=== PATIENT | female | born 1975 | race Caucasian/White ===

== ENCOUNTER 2016-08-10 20:18 | Emergency (ER) | payer MEDICAID, OTHER ==
[~2016-08-10] VITALS: Ht 160 cm; Wt 45.5 kg
[2016-08-10 20:25] VITALS: Ht 160 cm; Wt 45.5 kg
[2016-08-10] MEDS ORDERED: SOD CHLORIDE 0.9% 1,000 ML IV STA ×2 (20:39→21:38)
[2016-08-10 21:17] LABS: ADD SCAN DIFF NO
[2016-08-10 21:18] LABS: BASOPHIL # 0.1 10^3/ul (0.0-0.1); BASOPHILS % 0.6 % (0.0-2.0); EOSINOPHILS # 0.1 10^3/ul (0.0-0.5); EOSINOPHILS % 1.3 % (0.0-7.0); HEMATOCRIT 34.3 % (37.0-47.0); HEMOGLOBIN 10.6 g/dl (12.0-16.0); LYMPHOCYTES # 2.2 10^3/ul (0.8-2.9); LYMPHOCYTES % 26.2 % (15.0-51.0); MEAN CORPUSCULAR HEMOGLOBIN 23.7 pg (29.0-33.0); MEAN CORPUSCULAR HGB CONC 30.9 g/dl (32.0-37.0); MEAN CORPUSCULAR VOLUME 76.6 fl (82.0-101.0); MEAN PLATELET VOLUME 11.9 fl (7.4-10.4); MONOCYTE # 0.5 10^3/ul (0.3-0.9); NEUTROPHIL # 5.4 10^3/ul (1.6-7.5); NEUTROPHILS % 65.5 % (39.0-77.0); PLATELET COUNT 273 10^3/UL (140-415); RED BLOOD COUNT 4.48 10^6/ul (4.20-5.40); RED CELL DISTRIBUTION WIDTH 14.6 % (11.5-14.5); WHITE BLOOD COUNT 8.3 10^3/ul (4.8-10.8)
[2016-08-10 21:20] LABS: ADD UMIC YES; UR ASCORBIC ACID NEGATIVE (NEGATIVE); UR BILIRUBIN (Dip) NEGATIVE (NEGATIVE); UR BLOOD (Dip) 3+ mg/dL (NEGATIVE); UR CLARITY SLIGHTLY CLOUDY (CLEAR); UR COLOR YELLOW (YELLOW); UR GLUCOSE (Dip) 3+ mg/dL (NEGATIVE); UR KETONES (Dip) NEGATIVE (NEGATIVE); UR LEUKOCYTE ESTERASE (Dip) TRACE Leu/ul (NEGATIVE); UR NITRITE (Dip) NEGATIVE (NEGATIVE); UR RBC 1 /HPF (0-5); UR SPECIFIC GRAVITY (Dip) 1.023 (1.003-1.030); UR TOTAL PROTEIN (Dip) NEGATIVE (NEGATIVE); UR UROBILINOGEN (Dip) NEGATIVE (NEGATIVE)
[2016-08-10 21:21] LABS: UR BACTERIA MODERATE /HPF (NONE SEEN); UR SQUAMOUS EPITHELIAL CELL FEW /HPF (FEW)
[2016-08-10] MEDS ORDERED: HUM100IN4 SQ (21:31)
[2016-08-10 21:36] LABS: ALBUMIN 4.7 g/dl (3.3-4.9); ALBUMIN/GLOBULIN RATIO 1.46; BILIRUBIN,INDIRECT 0.3 mg/dl (0-1.1); BILIRUBIN,TOTAL 0.3 mg/dl (0.2-1.3); CALCIUM 9.6 mg/dl (8.4-10.2); CREATININE 0.77 mg/dl (0.44-1.00); POTASSIUM 3.9 mmol/L (3.5-5.1); TOTAL PROTEIN 7.9 g/dl (6.1-8.1)
[2016-08-10] MEDS ORDERED: morphine 4 MG/ML VIAL IV STA (21:38)
--- NOTE | 2016-08-10 21:38 | ERD ---
ER Documentation Chief Complaint Date/Time DATE: 08/10/16 TIME: 21:36 Chief Complaint hyperglycemia, [id number] [id number], blurry vision, did not take insulin shots HPI This is a 41-year-old female who presents to the emergency room for evaluation of elevated blood sugar. The patient does say she is a type I diabetic and states that she has not had her insulin shots in over 3 weeks. She states that she normally takes Novolin units in the morning and 15 units at night. The patient was brought in for further evaluation and denies any other symptoms except for mild abdominal cramping with no nausea or vomiting at this time. ROS All systems reviewed and are negative except as per history of present illness. Medications Home Meds Reported Medications Hum Insulin NPH/Reg Insulin Hm (Humulin 70/30 Kwikpen) 100 Unit/1 Ml Insuln.pen , 15 UNIT SQ BID 08/10/16 Allergies Allergies: Coded Allergies: No Known Allergy (Unverified , 08/10/16) PMhx/Soc History of Surgery: Yes (APPENDECTOMY) Anesthesia Reaction: No Hx Neurological Disorder: No Hx Respiratory Disorders: No Hx Cardiac Disorders: No Hx Psychiatric Problems: No Hx Miscellaneous Medical Probl: Yes (DM) Hx Alcohol Use: No Hx Substance Use: No Hx Tobacco Use: No Smoking Status: Never smoker Physical Exam Vitals Vital Signs Date Time Temp Pulse Resp B/P Pulse Ox O2 Delivery O2 Flow Rate FiO2 08/10/16 20:25 98.2 98 20 125/85 98 Physical Exam Const: No acute distress Head: Atraumatic Eyes: Normal Conjunctiva ENT: Normal External Ears, Nose and Mouth. Neck: Full range of motion..~ No meningismus. Resp: Clear to auscultation bilaterally Cardio: Regular rate and rhythm, no murmurs Abd: Soft, non tender, non distended. Normal bowel sounds Skin: No petechiae or rashes Back: No midline or flank tenderness Ext: No cyanosis, or edema Neur: Awake and alert Psych: Normal Mood and Affect Result Diagram: 08/10/162049 Results 24 hrs Laboratory Tests Test 08/10/16 20:24 08/10/16 20:50 Bedside Glucose 541mg/dL White Blood Count 8.310^3/ul Red Blood Count 4.4810^6/ul Hemoglobin 10.6g/dl Hematocrit 34.3% Mean Corpuscular Volume 76.6fl Mean Corpuscular Hemoglobin 23.7pg Mean Corpuscular Hemoglobin Concent 30.9g/dl Red Cell Distribution Width 14.6% Platelet Count 19338^3/UL Mean Platelet Volume 11.9fl Neutrophils % 65.5% Lymphocytes % 26.2% Monocytes % 6.0% Eosinophils % 1.3% Basophils % 0.6% Nucleated Red Blood Cells % 0.0/100WBC Neutrophils # 5.410^3/ul Lymphocytes # 2.210^3/ul Monocytes # 0.510^3/ul Eosinophils # 0.110^3/ul Basophils # 0.110^3/ul Nucleated Red Blood Cells # 0.010^3/ul Urine Color YELLOW Urine Clarity SLIGHTLY CLOUDY Urine pH 6.0 Urine Specific [place] 1.023 Urine Ketones NEGATIVEmg/dL Urine Nitrite NEGATIVEmg/dL Urine Bilirubin NEGATIVEmg/dL Urine Urobilinogen NEGATIVEmg/dL Urine Leukocyte Esterase TRACELeu/ul Urine Microscopic RBC 1/HPF Urine Microscopic WBC 8/HPF Urine Squamous Epithelial Cells FEW/HPF Urine Bacteria MODERATE/HPF Urine Hemoglobin 3+mg/dL Urine Glucose 3+mg/dL Urine Total Protein NEGATIVEmg/dl Current Medications Medications (Trade) Dose Ordered Sig/Nathan Route PRN Reason Start Time Stop Time Status Last Admin Dose Admin Sodium Chloride (NS) 1,000 ml @ 1,000 mls/hr Q1H STAT IV 08/10/16 20:39 08/10/16 21:38 08/10/16 21:02 Procedures/MDM This 41-year-old female presents to the ER for evaluation of hyperglycemia. This patient did have an elevated blood sugar on her CMP. No signs of DKA at this time. The patient was given 1 L fluids, was given 15 units of subcutaneous insulin. This patient will be discharged when her blood sugar is less than 400. She will be discharged home with a prescription for Novolin 70/ 30 Departure Diagnosis: Primary Impression: Hyperglycemia Condition: Stable MARKIE REZA DO Aug 10, 2016 21:38
[2016-08-10] MEDS ORDERED: NOVMIX SC (21:41)
[2016-08-10] MEDS ORDERED: INSULIN REGULAR 10 ML INJ SC ONE (22:00)
[2016-08-10] MEDS ORDERED: INSULIN REGULAR, HUMAN 100 UNIT/1 ML 3ML VIAL SC ONE (22:30)
[2016-08-10 23:39] VITALS: BP 102/79; PULSE 88; RESP 20; TEMP 98.2
== END 2016-08-10 23:53 | disposition home or self-care (01) ==
LOC: E/R 20:18
DX: E11.65 Type 2 diabetes mellitus with hyperglycemia (principal); Z79.4 Long term (current) use of insulin
CPT/HCPCS: 36415; 80053; 81001; 82962; 83690; 85025; 96372; 96374; J1815; J2270; J7030; Z7502

== ENCOUNTER 2016-09-23 19:36 | Emergency (ER) | END 2016-09-24 02:40 | disposition home or self-care (01) | DX: E11.65 Type 2 diabetes mellitus with hyperglycemia (principal); E86.0 Dehydration; E83.42 Hypomagnesemia; D64.9 Anemia, unspecified; R07.9 Chest pain, unspecified; Z79.4 Long term (current) use of insulin | CPT/HCPCS: 36415; 36600; 71010; 80053; 80306; 80307; 81001; 82803; 82962; 83605; 83690; 83735; 84100; 85025; 85610; 85730; 87040; 87086; 96372; 96374; 96375; J1815; J2405; J3475; J7030; Z7502 ==

== ENCOUNTER 2016-10-21 10:51 | Emergency (ER) | payer MEDICAID ==
[~2016-10-21] VITALS: Wt 43.0 kg
[~2016-10-21 10:51] MED LIST: ACET-141 PO; HUM100IN4 SQ; IBUP200C11 PO; NOVO7030 SC
[2016-10-21] MEDS ORDERED: SOD CHLORIDE 0.9% 1,000 ML IV STA (12:46)
[2016-10-21] MEDS ORDERED: ONDANSETRON 4 MG INJ IV STA (12:46)
[2016-10-21] MEDS ORDERED: KETOROLAC 30 MG INJ IV STA (12:46)
[2016-10-21 13:08] LABS: BASOPHILS % 0.4 % (0.0-2.0); EOSINOPHILS % 0.3 % (0.0-7.0); HEMOGLOBIN 11.7 g/dl (12.0-16.0); LYMPHOCYTES # 1.6 10^3/ul (0.8-2.9); LYMPHOCYTES % 17.4 % (15.0-51.0); MEAN CORPUSCULAR HEMOGLOBIN 23.6 pg (29.0-33.0); MEAN CORPUSCULAR HGB CONC 30.8 g/dl (32.0-37.0); MEAN CORPUSCULAR VOLUME 76.6 fl (82.0-101.0); MEAN PLATELET VOLUME 10.9 fl (7.4-10.4); MONOCYTE # 0.5 10^3/ul (0.3-0.9); MONOCYTES % 5.3 % (0.0-11.0); NEUTROPHIL # 6.8 10^3/ul (1.6-7.5); NEUTROPHILS % 76.3 % (39.0-77.0); PLATELET COUNT 288 10^3/UL (140-415); RED BLOOD COUNT 4.96 10^6/ul (4.20-5.40); RED CELL DISTRIBUTION WIDTH 15.5 % (11.5-14.5); WHITE BLOOD COUNT 8.9 10^3/ul (4.8-10.8)
[2016-10-21 13:40] LABS: ALANINE AMINOTRANSFERASE 24 IU/L (13-69); ALBUMIN 4.6 g/dl (3.3-4.9); ALBUMIN/GLOBULIN RATIO 1.09; ALKALINE PHOSPHATASE 65 IU/L (42-121); ANION GAP 21 (8-16); ASPARTATE AMINO TRANSFERASE 19 IU/L (15-46); BILIRUBIN,INDIRECT 0.9 mg/dl (0-1.1); BILIRUBIN,TOTAL 0.9 mg/dl (0.2-1.3); BLOOD UREA NITROGEN 14 mg/dl (7-20); CALCIUM 9.6 mg/dl (8.4-10.2); CARBON DIOXIDE 25 mmol/L (21-31); CHLORIDE 91 mmol/L (97-110); CREATININE 0.69 mg/dl (0.44-1.00); GLUCOSE 351 mg/dl (70-220); POTASSIUM 3.4 mmol/L (3.5-5.1); SODIUM 134 mmol/L (135-144); TOTAL PROTEIN 8.8 g/dl (6.1-8.1)
[2016-10-21] MEDS ORDERED: POTASSIUM CHLORIDE (SR) 20 MEQ TAB PO STA (13:52)
[2016-10-21 13:54] LABS: TROPONIN-I < 0.012 ng/ml (0.00-0.12)
[2016-10-21] MEDS ORDERED: POTASSIUM CHLORIDE (SR) 20 MEQ TAB PO ONE (13:55)
[2016-10-21 14:05] LABS: ADD UMIC YES; UR ASCORBIC ACID NEGATIVE (NEGATIVE); UR BACTERIA FEW /HPF (NONE SEEN); UR BILIRUBIN (Dip) NEGATIVE (NEGATIVE); UR BLOOD (Dip) NEGATIVE (NEGATIVE); UR CLARITY CLEAR (CLEAR); UR COLOR STRAW (YELLOW); UR GLUCOSE (Dip) 3+ mg/dL (NEGATIVE); UR KETONES (Dip) 2+ mg/dL (NEGATIVE); UR LEUKOCYTE ESTERASE (Dip) TRACE Leu/ul (NEGATIVE); UR NITRITE (Dip) NEGATIVE (NEGATIVE); UR RBC 1 /HPF (0-5); UR SPECIFIC GRAVITY (Dip) 1.017 (1.003-1.030); UR TOTAL PROTEIN (Dip) NEGATIVE (NEGATIVE); UR UROBILINOGEN (Dip) NEGATIVE (NEGATIVE)
[2016-10-21] MEDS ORDERED: IBUP-1542 PO (14:09)
--- NOTE | 2016-10-21 14:12 | ERD ---
ER Documentation Chief Complaint Date/Time DATE: 10/21/16 TIME: 14:12 Chief Complaint BODYACHES, NAUSEA, ONSET 4 DAYS HPI Patient is a 41-year-old female with diabetes who presents with body pain. She said that she has whole body pain and nausea as well as vomiting. She feels lightheaded. She said the symptoms started on Wednesday. She has subjective fever but has not taken her temperature. She tried Tylenol for the pain. Upon review of old medical records this is the patient's third visit to the ER since August 2016. She goes to a local clinic for her care. ROS All systems reviewed and are negative except as per history of present illness. Medications Home Meds Active Scripts Ondansetron (Ondansetron Odt) 4 Mg Tab.rapdis, 4 MG PO Q6H Y for NAUSEA AND/OR VOMITING, #10 TAB Prov:CRIS BLAKE MD 10/21/16 Ibuprofen* (Motrin*) 600 Mg Tab, 600 MG PO Q6H Y for PAIN AND OR ELEVATED TEMP, #30 TAB Prov:CRIS BLAKE MD 10/21/16 Insulin Isophan/Regular (Humulin 70/30) 100 Units/Ml Susp, 15 UNIT SC AC BREAKFAST DINNER for 10 Days, EA Prov:CHLOE QUINONEZ MD 09/24/16 Reported Medications Acetaminophen* (Acetaminophen*) 500 MG Extra Strength Tablet, 500 MG PO Q4H Y for PAIN AND OR ELEVATED TEMP, TAB 09/24/16 Ibuprofen* (Advil*) 200 Mg Capsule, 200 MG PO Q6H Y for PAIN, CAP 09/24/16 Hum Insulin NPH/Reg Insulin Hm (Humulin 70/30 Kwikpen) 100 Unit/1 Ml Insuln.pen , 15 UNIT SQ BID 08/10/16 Allergies Allergies: Coded Allergies: No Known Allergy (Unverified , 10/21/16) PMhx/Soc History of Surgery: Yes (APPENDECTOMY) Anesthesia Reaction: No Hx Neurological Disorder: No Hx Respiratory Disorders: No Hx Cardiac Disorders: No Hx Psychiatric Problems: No Hx Miscellaneous Medical Probl: Yes (DM) Hx Alcohol Use: No Hx Substance Use: No Hx Tobacco Use: No Smoking Status: Never smoker FmHx Family History: diabetes Physical Exam Vitals Vital Signs Date Time Temp Pulse Resp B/P Pulse Ox O2 Delivery O2 Flow Rate FiO2 10/21/16 10:54 97.6 121 17 148/90 97 Physical Exam Const: Moderate distress secondary to pain Head: Atraumatic Eyes: Normal Conjunctiva ENT: Normal External Ears, Nose and Mouth. Neck: Full range of motion..~ No meningismus. Resp: Clear to auscultation bilaterally Cardio: Tachycardic rate without murmur Abd: Soft, non tender, non distended. Normal bowel sounds Skin: No petechiae or rashes Back: No midline or flank tenderness Ext: No cyanosis, or edema Neur: Awake and alert Psych: Normal Mood and Affect Result Diagram: 10/21/16 1250 10/21/16 1250 Results 24 hrs Laboratory Tests Test 10/21/16 10:58 10/21/16 12:50 10/21/16 13:48 Bedside Glucose 243mg/dL White Blood Count 8.910^3/ul Red Blood Count 4.9610^6/ul Hemoglobin 11.7g/dl Hematocrit 38.0% Mean Corpuscular Volume 76.6fl Mean Corpuscular Hemoglobin 23.6pg Mean Corpuscular Hemoglobin Concent 30.8g/dl Red Cell Distribution Width 15.5% Platelet Count 62458^3/UL Mean Platelet Volume 10.9fl Neutrophils % 76.3% Lymphocytes % 17.4% Monocytes % 5.3% Eosinophils % 0.3% Basophils % 0.4% Nucleated Red Blood Cells % 0.0/100WBC Neutrophils # 6.810^3/ul Lymphocytes # 1.610^3/ul Monocytes # 0.510^3/ul Eosinophils # 0.010^3/ul Basophils # 0.010^3/ul Nucleated Red Blood Cells # 0.010^3/ul Sodium Level 134mmol/L Potassium Level 3.4mmol/L Chloride Level 91mmol/L Carbon Dioxide Level 25mmol/L Anion Gap 21 Blood Urea Nitrogen 14mg/dl Creatinine 0.69mg/dl Glucose Level 351mg/dl Calcium Level 9.6mg/dl Total Bilirubin 0.9mg/dl Direct Bilirubin 0.00mg/dl Indirect Bilirubin 0.9mg/dl Aspartate Amino Transf (AST/SGOT) 19IU/L Alanine Aminotransferase (ALT/SGPT) 24IU/L Alkaline Phosphatase 65IU/L Troponin I < 0.012ng/ml Total Protein 8.8g/dl Albumin 4.6g/dl Globulin 4.20g/dl Albumin/Globulin Ratio 1.09 Lipase 133U/L Urine Color STRAW Urine Clarity CLEAR Urine pH 6.0 Urine Specific [place] 1.017 Urine Ketones 2+mg/dL Urine Nitrite NEGATIVEmg/dL Urine Bilirubin NEGATIVEmg/dL Urine Urobilinogen NEGATIVEmg/dL Urine Leukocyte Esterase TRACELeu/ul Urine Microscopic RBC 1/HPF Urine Microscopic WBC 10/HPF Urine Bacteria FEW/HPF Urine Hemoglobin NEGATIVEmg/dL Urine Glucose 3+mg/dL Urine Total Protein NEGATIVEmg/dl Current Medications Medications (Trade) Dose Ordered Sig/Nathan Route PRN Reason Start Time Stop Time Status Last Admin Dose Admin Sodium Chloride (NS) 1,000 ml @ 1,000 mls/hr Q1H STAT IV 10/21/16 12:46 10/21/16 13:45 DC 10/21/16 12:57 Ondansetron HCl (Zofran Inj) 4 mg ONCE STAT IV 10/21/16 12:46 10/21/16 12:47 DC 10/21/16 12:57 Ketorolac Tromethamine (Toradol) 30 mg ONCE STAT IV 10/21/16 12:46 10/21/16 12:47 DC 10/21/16 13:55 Potassium Chloride (Klor-Con 20) 40 meq ONCE STAT PO 10/21/16 13:52 10/21/16 13:54 DC 10/21/16 13:56 Potassium Chloride (Klor-Con 20) 20 meq STK-MED ONCE PO 10/21/16 13:55 10/21/16 13:56 DC Procedures/MDM EKG read by me: Rate/Rhythm: Regular rate and rhythm at a rate of 93 Intervals: Normal Impression: No evidence of ischemia or arrhythmia Patient is a 41-year-old female with diabetes who presents with body pain and dehydration. She was given fluids as well as Toradol and Zofran. She feels better. Her heart rate has normalized. Her laboratory studies show hyperglycemia but no signs of diabetic ketoacidosis. She has a mild hypokalemia and was given potassium by mouth for repletion. The fluids will help with hyperglycemia. I do not believe she requires admission to the hospital at this time and I believe outpatient management is appropriate. I doubt or ectopic . She can follow-up with her primary doctor within 24-48 hours. Departure Diagnosis: Primary Impression: Hypokalemia Additional Impressions: Pain Hyperglycemia Dehydration Condition: Fair Patient Instructions: Back Pain (Acute Or Chronic) Referrals: [facility] YOU HAVE RECEIVED A MEDICAL SCREENING EXAM AND THE RESULTS INDICATE THAT YOU DO NOT HAVE A CONDITION THAT REQUIRES URGENT TREATMENT IN THE EMERGENCY DEPARTMENT. FURTHER EVALUATION AND TREATMENT OF YOUR CONDITION CAN WAIT UNTIL YOU ARE SEEN IN YOUR DOCTORS OFFICE WITHIN THE NEXT 1-2 DAYS. IT IS YOUR RESPONSIBILITY TO MAKE AN APPOINTMENT FOR FOLOW-UP CARE. IF YOU HAVE A PRIMARY DOCTOR --you should call your primary doctor and schedule an appointment IF YOU DO NOT HAVE A PRIMARY DOCTOR YOU CAN CALL OUR PHYSICIAN REFERRAL HOTLINE AT IF YOU CAN NOT AFFORD TO SEE A PHYSICIAN YOU CAN CHOSE FROM THE FOLLOWING [facility] [address] [facility]. [facility] [address] [facility] [address] [facility] [address] [facility] [address] [facility]. [facility] [address] Additional Instructions: Call your primary care doctor TOMORROW for an appointment during the next 1-2 days.See the doctor sooner or return here if your condition worsens before your appointment time. CRIS BLAKE MD Oct 21, 2016 14:12
[2016-10-21] MEDS ORDERED: ONDA4TAB14 PO (14:22)
[2016-10-21 14:37] VITALS: BP 138/81; PULSE 97; RESP 20
== END 2016-10-21 14:38 | disposition home or self-care (01) ==
LOC: FTE 10:51
DX: E87.6 Hypokalemia (principal); E11.65 Type 2 diabetes mellitus with hyperglycemia; E86.0 Dehydration; Z79.4 Long term (current) use of insulin
CPT/HCPCS: 36415; 80053; 81001; 82962; 83690; 84484; 85025; 93005; 96374; 96375; J1885; J2405; J7030; Z7502; Z7610

== ENCOUNTER 2016-10-29 20:06 | Emergency (ER) | payer MEDICAID ==
[~2016-10-29] VITALS: Ht 149.9 cm; Wt 45.0 kg
[~2016-10-29 20:06] MED LIST changes: +IBUP-1542 PO; +ONDA4TAB14 PO
[2016-10-29 20:07] VITALS: Ht 149.9 cm; Wt 45.0 kg
[2016-10-29] MEDS ORDERED: SOD CHLORIDE 0.9% 1,000 ML IV STA (21:28)
[2016-10-29] MEDS ORDERED: KETOROLAC 30 MG INJ IV STA (21:28)
[2016-10-29] MEDS ORDERED: ONDANSETRON 4 MG INJ IV STA (21:28)
[2016-10-29 22:03] LABS: BASOPHILS % 0.5 % (0.0-2.0); EOSINOPHILS # 0.1 10^3/ul (0.0-0.5); EOSINOPHILS % 1.1 % (0.0-7.0); HEMATOCRIT 37.2 % (37.0-47.0); HEMOGLOBIN 11.4 g/dl (12.0-16.0); LYMPHOCYTES # 2.2 10^3/ul (0.8-2.9); MEAN CORPUSCULAR HEMOGLOBIN 23.8 pg (29.0-33.0); MEAN CORPUSCULAR HGB CONC 30.6 g/dl (32.0-37.0); MEAN CORPUSCULAR VOLUME 77.5 fl (82.0-101.0); MEAN PLATELET VOLUME 10.6 fl (7.4-10.4); MONOCYTE # 0.5 10^3/ul (0.3-0.9); MONOCYTES % 5.3 % (0.0-11.0); NEUTROPHILS % 67.9 % (39.0-77.0); PLATELET COUNT 312 10^3/UL (140-415); RED CELL DISTRIBUTION WIDTH 15.8 % (11.5-14.5); WHITE BLOOD COUNT 8.9 10^3/ul (4.8-10.8)
[2016-10-29 22:24] LABS: ALBUMIN 4.2 g/dl (3.3-4.9); ALBUMIN/GLOBULIN RATIO 1.13; BILIRUBIN,INDIRECT 0.6 mg/dl (0-1.1); BILIRUBIN,TOTAL 0.6 mg/dl (0.2-1.3); CALCIUM 9.1 mg/dl (8.4-10.2); CREATININE 0.7 mg/dl (0.44-1.00); POTASSIUM 3.5 mmol/L (3.5-5.1); TOTAL PROTEIN 7.9 g/dl (6.1-8.1)
[2016-10-29 22:59] LABS: ADD UMIC NO; UR ASCORBIC ACID NEGATIVE (NEGATIVE); UR BACTERIA FEW /HPF (NONE SEEN); UR BILIRUBIN (Dip) NEGATIVE (NEGATIVE); UR BLOOD (Dip) NEGATIVE (NEGATIVE); UR CLARITY SLIGHTLY CLOUDY (CLEAR); UR COLOR YELLOW (YELLOW); UR GLUCOSE (Dip) 3+ mg/dL (NEGATIVE); UR KETONES (Dip) TRACE mg/dL (NEGATIVE); UR LEUKOCYTE ESTERASE (Dip) NEGATIVE Leu/ul (NEGATIVE); UR NITRITE (Dip) NEGATIVE (NEGATIVE); UR RBC 2 /HPF (0-5); UR SPECIFIC GRAVITY (Dip) 1.018 (1.003-1.030); UR SQUAMOUS EPITHELIAL CELL FEW /HPF (FEW); UR TOTAL PROTEIN (Dip) NEGATIVE (NEGATIVE); UR UROBILINOGEN (Dip) NEGATIVE (NEGATIVE)
[2016-10-29] MEDS ORDERED: IBUP-1542 PO (23:13)
[2016-10-29] MEDS ORDERED: TRAM50TA2 PO (23:13)
--- NOTE | 2016-10-29 23:16 | ERD ---
ER Documentation Chief Complaint Date/Time DATE: 10/29/16 TIME: 23:14 Chief Complaint c/o "severe body pain." N/V. HPI This 5-year-old female presents with planes of body pain. She describes as being from her waist up to her chest to her arms and neck. She was seen here approximately a week ago for similar complaints. She has a history of diabetes. She had mild hypokalemia at that time. She has nausea due to pain. She denies any fevers, cough, shortness of breath, retrosternal chest pain, abdominal pain. She denies urinary complaints. ROS All systems reviewed and are negative except as per history of present illness. Medications Home Meds Active Scripts Ibuprofen* (Motrin*) 600 Mg Tab, 600 MG PO Q6, #20 TAB Prov:EZEQUIEL ADAMS MD 10/29/16 Tramadol HCl (Tramadol HCl) 50 Mg Tablet, 50 MG PO Q4 Y for PAIN, #20 TAB Prov:EZEQUIEL ADAMS MD 10/29/16 Ondansetron (Ondansetron Odt) 4 Mg Tab.rapdis, 4 MG PO Q6H Y for NAUSEA AND/OR VOMITING, #10 TAB Prov:CRIS BLAKE MD 10/21/16 Ibuprofen* (Motrin*) 600 Mg Tab, 600 MG PO Q6H Y for PAIN AND OR ELEVATED TEMP, #30 TAB Prov:CRIS BLAKE MD 10/21/16 Insulin Isophan/Regular (Humulin 70/30) 100 Units/Ml Susp, 15 UNIT SC AC BREAKFAST DINNER for 10 Days, EA Prov:CHLOE QUINONEZ MD 09/24/16 Reported Medications Acetaminophen* (Acetaminophen*) 500 MG Extra Strength Tablet, 500 MG PO Q4H Y for PAIN AND OR ELEVATED TEMP, TAB 09/24/16 Ibuprofen* (Advil*) 200 Mg Capsule, 200 MG PO Q6H Y for PAIN, CAP 09/24/16 Hum Insulin NPH/Reg Insulin Hm (Humulin 70/30 Kwikpen) 100 Unit/1 Ml Insuln.pen , 15 UNIT SQ BID 08/10/16 Allergies Allergies: Coded Allergies: No Known Allergy (Unverified , 10/21/16) PMhx/Soc History of Surgery: Yes (APPENDECTOMY) Anesthesia Reaction: No Hx Neurological Disorder: No Hx Respiratory Disorders: No Hx Cardiac Disorders: No Hx Psychiatric Problems: No Hx Miscellaneous Medical Probl: Yes (DM) Hx Alcohol Use: No Hx Substance Use: No Hx Tobacco Use: No Smoking Status: Never smoker Physical Exam Vitals Vital Signs Date Time Temp Pulse Resp B/P Pulse Ox O2 Delivery O2 Flow Rate FiO2 10/29/16 20:07 98.5 85 18 148/73 98 Physical Exam Const: [], [id number], disheveled Head: Atraumatic Eyes: Normal Conjunctiva ENT: Normal External Ears, Nose and Mouth. Neck: Full range of motion..~ No meningismus. Resp: Clear to auscultation bilaterally Cardio: Regular rate and rhythm, no murmurs Abd: Soft, non tender, non distended. Normal bowel sounds Skin: No petechiae or rashes Back: No midline or flank tenderness Ext: No cyanosis, or edema Neur: Awake and alert Psych: Normal Mood and Affect Result Diagram: 10/29/16215310/29/162153 Results 24 hrs Laboratory Tests Test 10/29/16 21:50 10/29/16 21:54 Urine Color YELLOW Urine Clarity SLIGHTLY CLOUDY Urine pH 6.0 Urine Specific [place] 1.018 Urine Ketones TRACEmg/dL Urine Nitrite NEGATIVEmg/dL Urine Bilirubin NEGATIVEmg/dL Urine Urobilinogen NEGATIVEmg/dL Urine Leukocyte Esterase NEGATIVELeu/ul Urine Microscopic RBC 2/HPF Urine Microscopic WBC 6/HPF Urine Squamous Epithelial Cells FEW/HPF Urine Bacteria FEW/HPF Urine Hemoglobin NEGATIVEmg/dL Urine Glucose 3+mg/dL Urine Total Protein NEGATIVEmg/dl White Blood Count 8.910^3/ul Red Blood Count 4.8010^6/ul Hemoglobin 11.4g/dl Hematocrit 37.2% Mean Corpuscular Volume 77.5fl Mean Corpuscular Hemoglobin 23.8pg Mean Corpuscular Hemoglobin Concent 30.6g/dl Red Cell Distribution Width 15.8% Platelet Count 85965^3/UL Mean Platelet Volume 10.6fl Neutrophils % 67.9% Lymphocytes % 25.0% Monocytes % 5.3% Eosinophils % 1.1% Basophils % 0.5% Nucleated Red Blood Cells % 0.0/100WBC Neutrophils # 6.010^3/ul Lymphocytes # 2.210^3/ul Monocytes # 0.510^3/ul Eosinophils # 0.110^3/ul Basophils # 0.010^3/ul Nucleated Red Blood Cells # 0.010^3/ul Sodium Level 136mmol/L Potassium Level 3.5mmol/L Chloride Level 95mmol/L Carbon Dioxide Level 33mmol/L Anion Gap 12 Blood Urea Nitrogen 16mg/dl Creatinine 0.70mg/dl Glucose Level 282mg/dl Calcium Level 9.1mg/dl Total Bilirubin 0.6mg/dl Direct Bilirubin 0.00mg/dl Indirect Bilirubin 0.6mg/dl Aspartate Amino Transf (AST/SGOT) 22IU/L Alanine Aminotransferase (ALT/SGPT) 26IU/L Alkaline Phosphatase 68IU/L Total Protein 7.9g/dl Albumin 4.2g/dl Globulin 3.70g/dl Albumin/Globulin Ratio 1.13 Lipase 143U/L Current Medications Medications (Trade) Dose Ordered Sig/Nathan Route PRN Reason Start Time Stop Time Status Last Admin Dose Admin Sodium Chloride (NS) 1,000 ml @ 1,000 mls/hr Q1H STAT IV 10/29/16 21:28 10/29/16 22:27 DC 10/29/16 22:03 Ondansetron HCl (Zofran Inj) 4 mg ONCE STAT IV 10/29/16 21:28 10/29/16 21:30 DC 10/29/16 22:04 Ketorolac Tromethamine (Toradol) 30 mg ONCE STAT IV 10/29/16 21:28 10/29/16 21:30 DC 10/29/16 22:04 Procedures/MDM CBC is normal and CMP shows glucose of 282, otherwise no acute findings. Patient was given 1 L normal saline IV and Toradol 30 mg IV. Patient presents with sensation myalgias of uncertain etiology. She has hyperglycemia. Current signs or symptoms do not suggest rhabdomyolysis, cellulitis, acute cardiopulmonary disease or acute abdomen or additional emergent causes of presenting complaints. Patient will be treated with tramadol and ibuprofen and primary care follow-up and return precautions. Urine shows no evidence of significant infection. The patient was stable with no new complaints during the ER course. Clinically, there is no current evidence to suggest meningitis, sepsis, acute abdomen, pneumonia, acute coronary syndrome, pulmonary embolism, or any other emergent condition appearing to require further evaluation or hospitalization. The patient should certainly return for any new or worsening symptoms per the aftercare instructions. They should otherwise follow-up with her primary care doctor for reevaluation this week. Disclaimer: Inadvertent spelling and grammatical errors are likely due to EHR/dictation software use and do not reflect on the overall quality of patient care. Also, please note that the electronic time recorded on this note does not necessarily reflect the actual time of the patient encounter. Departure Diagnosis: Primary Impression: Myalgia Additional Impression: Multiple complaints Condition: Stable Patient Instructions: Myalgias Additional Instructions: Emanations normal today. Recheck with primary doctor or for new or worsening symptoms. Plenty fluids at home. EZEQUIEL ADAMS MD Oct 29, 2016 23:16
[2016-10-29] MEDS ORDERED: traMADol 50 MG TAB PO ONE (23:30)
[2016-10-29 23:43] VITALS: BP 138/79; PULSE 94; RESP 17; TEMP 97.8
== END 2016-10-29 23:43 | disposition home or self-care (01) ==
LOC: FTE 20:06
DX: R11.2 Nausea with vomiting, unspecified (principal); M79.1 Myalgia; E11.9 Type 2 diabetes mellitus without complications; Z79.4 Long term (current) use of insulin
CPT/HCPCS: 36415; 80053; 81001; 83690; 85025; 96374; 96375; J1885; J2405; J7030; Z7502; Z7610; 81003

== ENCOUNTER 2017-01-19 10:25 | Emergency (ER) | payer MEDICAID ==
[~2017-01-19] VITALS: Ht 149.9 cm; Wt 44.7 kg
[~2017-01-19 10:25] MED LIST changes: +TRAM50TA2 PO
[2017-01-19 10:29] VITALS: Ht 149.9 cm; Wt 44.7 kg
[2017-01-19 12:02] LABS: URINE BLOOD (Dip) POC Negative (NEGATIVE)
[2017-01-19] MEDS ORDERED: SOD CHLORIDE 0.9% 2,000 ML IV ONE (12:03)
[2017-01-19] MEDS ORDERED: INSULIN LISPRO 100 UNIT/ML VIAL SC STA (12:03)
[2017-01-19] MEDS ORDERED: KETOROLAC 30 MG INJ IV STA (12:05)
[2017-01-19 12:19] LABS: BASOPHILS % 0.5 % (0.0-2.0); EOSINOPHILS # 0.1 10^3/ul (0.0-0.5); HEMATOCRIT 31.4 % (37.0-47.0); LYMPHOCYTES # 1.6 10^3/ul (0.8-2.9); LYMPHOCYTES % 18.5 % (15.0-51.0); MEAN CORPUSCULAR HEMOGLOBIN 24.2 pg (29.0-33.0); MEAN CORPUSCULAR HGB CONC 31.8 g/dl (32.0-37.0); MEAN PLATELET VOLUME 11.6 fl (7.4-10.4); MONOCYTE # 0.6 10^3/ul (0.3-0.9); MONOCYTES % 6.3 % (0.0-11.0); NEUTROPHIL # 6.5 10^3/ul (1.6-7.5); NEUTROPHILS % 73.4 % (39.0-77.0); PLATELET COUNT 282 10^3/UL (140-415); RED BLOOD COUNT 4.13 10^6/ul (4.20-5.40); RED CELL DISTRIBUTION WIDTH 15.9 % (11.5-14.5); WHITE BLOOD COUNT 8.9 10^3/ul (4.8-10.8)
[2017-01-19 12:27] LABS: ADD UMIC NO; UR ASCORBIC ACID 20 mg/dL (NEGATIVE); UR BILIRUBIN (Dip) NEGATIVE (NEGATIVE); UR BLOOD (Dip) NEGATIVE (NEGATIVE); UR CLARITY CLEAR (CLEAR); UR COLOR STRAW (YELLOW); UR GLUCOSE (Dip) 3+ mg/dL (NEGATIVE); UR KETONES (Dip) NEGATIVE (NEGATIVE); UR LEUKOCYTE ESTERASE (Dip) NEGATIVE Leu/ul (NEGATIVE); UR NITRITE (Dip) NEGATIVE (NEGATIVE); UR SPECIFIC GRAVITY (Dip) 1.017 (1.003-1.030); UR TOTAL PROTEIN (Dip) NEGATIVE (NEGATIVE); UR UROBILINOGEN (Dip) NEGATIVE (NEGATIVE)
[2017-01-19 12:34] LABS: ALBUMIN 3.5 g/dl (3.3-4.9); ALBUMIN/GLOBULIN RATIO 1.12; BILIRUBIN,INDIRECT 0.3 mg/dl (0-1.1); BILIRUBIN,TOTAL 0.3 mg/dl (0.2-1.3); CALCIUM 9.6 mg/dl (8.4-10.2); CREATINE KINASE < 20 IU/L (23-200); CREATININE 0.72 mg/dl (0.44-1.00); POTASSIUM 4.5 mmol/L (3.5-5.1); TOTAL PROTEIN 6.6 g/dl (6.1-8.1)
[2017-01-19 12:45] LABS: CK-MB < 0.22 ng/ml (0.0-2.4); TROPONIN-I < 0.012 ng/ml (0.00-0.12)
[2017-01-19] MEDS ORDERED: HYDROCODONE/APAP (5/325) TAB PO ONE (15:30)
[2017-01-19] MEDS ORDERED: TRAM50TA2 PO (15:43)
[2017-01-19] MEDS ORDERED: IBUP400T22 PO (15:51)
--- NOTE | 2017-01-19 15:51 | ERD ---
ER Documentation Chief Complaint Chief Complaint Generalized body pain x 2 weeks, denies fever HPI This 41-year-old female presents with upper back pain for last 2 weeks. She has been seen here previously for nonspecific myalgias of uncertain etiology. She has had negative evaluation to this point. She has a history of poorly controlled diabetes and has had episodes of hypoglycemia in the past. She denies fevers, vomiting, chest pain, shortness of breath, bowel or bladder incontinence, weakness. ROS All systems reviewed and are negative except as per history of present illness. Medications Home Meds Active Scripts Ibuprofen* (Motrin*) 400 Mg Tab, 400 MG PO Q6, #20 TAB Prov:EZEQUIEL ADAMS MD 01/19/17 Tramadol HCl (Tramadol HCl) 50 Mg Tablet, 50 MG PO Q4 Y for PAIN, #20 TAB Prov:EZEQUIEL ADAMS MD 01/19/17 Ibuprofen* (Motrin*) 600 Mg Tab, 600 MG PO Q6, #20 TAB Prov:EZEQUIEL ADAMS MD 10/29/16 Tramadol HCl (Tramadol HCl) 50 Mg Tablet, 50 MG PO Q4 Y for PAIN, #20 TAB Prov:EZEQUIEL ADAMS MD 10/29/16 Ondansetron (Ondansetron Odt) 4 Mg Tab.rapdis, 4 MG PO Q6H Y for NAUSEA AND/OR VOMITING, #10 TAB Prov:CRIS BLAKE MD 10/21/16 Ibuprofen* (Motrin*) 600 Mg Tab, 600 MG PO Q6H Y for PAIN AND OR ELEVATED TEMP, #30 TAB Prov:CRIS LBAKE MD 10/21/16 Insulin Isophan/Regular (Humulin 70/30) 100 Units/Ml Susp, 15 UNIT SC AC BREAKFAST DINNER for 10 Days, EA Prov:CHLOE QUINONEZ MD 09/24/16 Reported Medications Acetaminophen* (Acetaminophen*) 500 MG Extra Strength Tablet, 500 MG PO Q4H Y for PAIN AND OR ELEVATED TEMP, TAB 09/24/16 Ibuprofen* (Advil*) 200 Mg Capsule, 200 MG PO Q6H Y for PAIN, CAP 09/24/16 Hum Insulin NPH/Reg Insulin Hm (Humulin 70/30 Kwikpen) 100 Unit/1 Ml Insuln.pen , 15 UNIT SQ BID 08/10/16 Allergies Allergies: Coded Allergies: No Known Allergy (Unverified , 10/21/16) PMhx/Soc History of Surgery: Yes (APPENDECTOMY) Anesthesia Reaction: No Hx Neurological Disorder: No Hx Respiratory Disorders: No Hx Cardiac Disorders: No Hx Psychiatric Problems: No Hx Miscellaneous Medical Probl: Yes (DM) Hx Alcohol Use: No Hx Substance Use: No Hx Tobacco Use: No Smoking Status: Never smoker Physical Exam Vitals Vital Signs Date Time Temp Pulse Resp B/P Pulse Ox O2 Delivery O2 Flow Rate FiO2 01/19/17 10:29 97.2 114 18 124/89 99 Physical Exam Const: [] Alert, [id number]. Head: Atraumatic Eyes: Normal Conjunctiva ENT: Normal External Ears, Nose and Mouth. Neck: Full range of motion..~ No meningismus. Resp: Clear to auscultation bilaterally Cardio: Regular rate and rhythm, no murmurs Abd: Soft, non tender, non distended. Normal bowel sounds Skin: No petechiae or rashes Back: No midline or flank tenderness. Mild generalized upper back thoracic tenderness without bony tenderness or deformities or skin changes. Ext: No cyanosis, or edema Neur: Awake and alert Psych: Normal Mood and Affect Result Diagram: 01/19/17 1150 01/19/17 1150 Results 24 hrs Laboratory Tests Test 01/19/17 11:50 01/19/17 12:00 01/19/17 12:03 01/19/17 15:17 White Blood Count 8.910^3/ul Red Blood Count 4.1310^6/ul Hemoglobin 10.0g/dl Hematocrit 31.4% Mean Corpuscular Volume 76.0fl Mean Corpuscular Hemoglobin 24.2pg Mean Corpuscular Hemoglobin Concent 31.8g/dl Red Cell Distribution Width 15.9% Platelet Count 05458^3/UL Mean Platelet Volume 11.6fl Neutrophils % 73.4% Lymphocytes % 18.5% Monocytes % 6.3% Eosinophils % 1.0% Basophils % 0.5% Nucleated Red Blood Cells % 0.0/100WBC Neutrophils # 6.510^3/ul Lymphocytes # 1.610^3/ul Monocytes # 0.610^3/ul Eosinophils # 0.110^3/ul Basophils # 0.010^3/ul Nucleated Red Blood Cells # 0.010^3/ul Sodium Level 133mmol/L Potassium Level 4.5mmol/L Chloride Level 89mmol/L Carbon Dioxide Level 29mmol/L Anion Gap 20 Blood Urea Nitrogen 16mg/dl Creatinine 0.72mg/dl Glucose Level 534mg/dl Calcium Level 9.6mg/dl Total Bilirubin 0.3mg/dl Direct Bilirubin 0.00mg/dl Indirect Bilirubin 0.3mg/dl Aspartate Amino Transf (AST/SGOT) 16IU/L Alanine Aminotransferase (ALT/SGPT) 26IU/L Alkaline Phosphatase 87IU/L Creatine Kinase < 20IU/L Creatine Kinase Index Creatinine Kinase MB (Mass) < 0.22ng/ml Troponin I < 0.012ng/ml Total Protein 6.6g/dl Albumin 3.5g/dl Globulin 3.10g/dl Albumin/Globulin Ratio 1.12 Lipase 230U/L Urine Color STRAW Urine Clarity CLEAR Urine pH 5.0 Urine Specific [place] 1.017 Urine Ketones NEGATIVEmg/dL Urine Nitrite NEGATIVEmg/dL Urine Bilirubin NEGATIVEmg/dL Urine Urobilinogen NEGATIVEmg/dL Urine Leukocyte Esterase NEGATIVELeu/ul Urine Hemoglobin NEGATIVEmg/dL Urine Glucose 3+mg/dL Urine Total Protein NEGATIVEmg/dl Bedside Glucose 479mg/dL 73mg/dL Bedside Urine pH (LAB) 5.5 Bedside Urine Protein (LAB) Negative Bedside Urine Glucose (UA) 0.50% Bedside Urine Ketones (LAB) Negative Bedside Urine Blood Negative Bedside Urine Nitrite (LAB) Negative Bedside Urine Leukocyte Esterase (L Negative Current Medications Medications (Trade) Dose Ordered Sig/Nathan Route PRN Reason Start Time Stop Time Status Last Admin Dose Admin Sodium Chloride (NS) 2,000 ml @ 0 mls/hr Q0M ONCE IV 01/19/17 12:03 01/19/17 12:05 DC 01/19/17 12:19 Insulin Human Lispro (Humalog) 10 unit ONCE STAT SC 01/19/17 12:03 01/19/17 12:05 DC 01/19/17 12:48 Ketorolac Tromethamine (Toradol) 30 mg ONCE STAT IV 01/19/17 12:05 01/19/17 12:06 DC 01/19/17 12:22 Acetaminophen/ Hydrocodone Bitart ([place] (5/325)) 1 tab ONCE ONCE PO 01/19/17 15:30 01/19/17 15:31 DC 01/19/17 15:28 Procedures/MDM Initial Accu-Chek is in the 400s. CMP shows elevated to 534 glucose. Urine shows glucose without ketones, nitrates, blood. Patient presents with signs of myalgias and hyperglycemia and poorly controlled diabetes. There is hyponatremia as well as hypochloremia suggestive of mild contraction alkalosis. CO2 is high normal. Patient was given 10 units Humalog subcutaneously and 2 L normal saline IV. Blood sugar improved to the 70s. Patient was given Toradol 30 mg IV and [place] 5 mg p.o. for myalgias. Patient has normal CK and troponin as well. Patient presents with myalgias of uncertain etiology without signs or symptoms of ketoacidosis, sepsis, cellulitis, rhabdomyolysis, additional emergent causes of presenting complaints. She will treated with tramadol and primary care follow-up. The patient was stable with no new complaints during the ER course. Clinically, there is no current evidence to suggest meningitis, sepsis, acute abdomen, pneumonia, acute coronary syndrome, pulmonary embolism, or any other emergent condition appearing to require further evaluation or hospitalization. The patient should certainly return for any new or worsening symptoms per the aftercare instructions. They should otherwise follow-up with her primary care doctor for reevaluation this week. Departure Diagnosis: Primary Impression: Myalgia Condition: Stable Patient Instructions: Myalgias Additional Instructions: Except for elevated blood sugar additional labs show no significant acute abnormalities today. See primary doctor for follow-up. Consider marketing technology specialist for evaluation. Recheck for fevers, vomiting, new symptoms. EZEQUIEL ADAMS MD Jan 19, 2017 15:51
[2017-01-19 15:54] VITALS: BP 124/89; PULSE 78; RESP 18; TEMP 97.2
== END 2017-01-19 15:55 | disposition home or self-care (01) ==
LOC: FTE 10:25
DX: M79.1 Myalgia (principal); E11.9 Type 2 diabetes mellitus without complications; Z79.4 Long term (current) use of insulin
CPT/HCPCS: 36415; 80053; 81003; 82550; 82553; 82962; 83690; 84484; 85025; 96372; 96374; J1815; J1885; J7030; Z7502; Z7610

== ENCOUNTER 2017-03-08 21:28 | Emergency (ER) | END 2017-03-09 04:07 | disposition home or self-care (01) ==

== ENCOUNTER 2017-03-20 19:35 | Emergency (ER) | END 2017-03-20 23:12 | disposition home or self-care (01) ==

== ENCOUNTER 2017-03-25 22:11 | Emergency (ER) | END 2017-03-26 06:18 | disposition home or self-care (01) ==

== ENCOUNTER 2017-04-13 09:36 | Emergency (ER) | END 2017-04-13 14:50 | disposition home or self-care (01) ==

== ENCOUNTER 2017-04-19 20:30 | Emergency (ER) | END 2017-04-20 00:39 | disposition home or self-care (01) ==

== ENCOUNTER 2017-08-08 12:48 | Emergency (ER) | END 2017-08-08 15:36 | disposition home or self-care (01) ==

== ENCOUNTER 2017-08-23 14:24 | Emergency (ER) | END 2017-08-23 18:21 | disposition home or self-care (01) ==

== ENCOUNTER 2018-01-11 15:16 | Emergency (ER) | END 2018-01-11 19:08 | disposition home or self-care (01) ==

== ENCOUNTER 2018-04-16 04:38 | Emergency (ER) | payer MEDICAID ==
[~2018-04-16] VITALS: Ht 152.4 cm; Wt 45.8 kg
[~2018-04-16 04:38] MED LIST changes: -ACET-141 PO; +CEPH-443 PO; -HUM100IN4 SQ; -IBUP200C11 PO; +LANT3I SC; +NAPR-985 PO; -NOVO7030 SC; -TRAM50TA2 PO
[2018-04-16 04:42] VITALS: BP 147/68; PULSE 111; RESP 16; Ht 152.4 cm; Wt 45.8 kg
[2018-04-16] MEDS ORDERED: KETOROLAC 30 MG INJ IM STA (06:13)
[2018-04-16] MEDS ORDERED: HYDR-4011 PO (07:12)
[2018-04-16] MEDS ORDERED: IBUP-1542 PO (07:12)
[2018-04-16] MEDS ORDERED: METH750T93 PO (07:13)
--- NOTE | 2018-04-16 07:37 | ERD ---
ER Documentation Chief Complaint Chief Complaint bilateral shoulder pain +neck pain x2 weeks denies trauma HPI 43-year-old female past medical history of diabetes presents for bilateral jorje ulder pain and neck pain times 2 weeks. She denies any trauma. She states that she has 10 out of 10 pain intermittent. She took Motrin Tylenol and Naprosyn at home without relief. She has had prior similar symptoms once before. Denies fevers or chills. Denies chest pain or shortness of breath. ROS All systems reviewed and are negative except as per history of present illness. Medications Home Meds Active Scripts Methocarbamol* (Robaxin*) 750 Mg Tablet, 750 MG PO TID PRN for MUSCLE SPASMS, #30 TAB Prov:CHLOE WHITTAKER DO 04/16/18 Hydrocodone/Acetaminophen ([place] 5-325 Tablet) 1 Each Tablet, 1 TAB PO Q6H PRN for PAIN, #10 TAB Prov:CHLOE WHITTAKER DO 04/16/18 Ibuprofen* (Motrin*) 600 Mg Tab, 600 MG PO Q6H PRN for PAIN, #30 TAB Prov:CHLOE WHITTAKER DO 04/16/18 Naproxen* (Naprosyn*) 500 Mg Tablet, 500 MG PO BID PRN for PAIN AND/OR INFLAMMATION, #30 TAB Prov:EULALIA LOVE PA-C 03/18/18 Ondansetron (Ondansetron Odt) 4 Mg Tab.rapdis, 4 MG PO Q6H PRN for NAUSEA AND/OR VOMITING, #10 TAB Prov:EULALIA LOVE PA-C 03/18/18 Cephalexin* (Keflex*) 500 Mg Capsule, 500 MG PO TID for 5 Days, CAP Prov:ELIEZER MUSE PA-C 03/09/18 Ibuprofen* (Motrin*) 600 Mg Tab, 600 MG PO Q6, #20 TAB Prov:CHLOE QUINONEZ MD 01/11/18 Reported Medications Ibuprofen* (Ibuprofen*) 600 Mg Tablet, 600 MG PO NEEDED, TAB 01/11/18 Insulin Glargine* (Lantus*) 100 Unit/Ml Soln, 15 UNIT SC BID, #1 VIAL 01/11/18 Allergies Allergies: Coded Allergies: No Known Allergy (Unverified , 01/11/18) PMhx/Soc History of Surgery: Yes (appendectomy) Anesthesia Reaction: No Hx Neurological Disorder: No Hx Respiratory Disorders: No Hx Cardiac Disorders: No Hx Psychiatric Problems: No Hx Miscellaneous Medical Probl: Yes (DM type I) Hx Alcohol Use: No Hx Substance Use: No Hx Tobacco Use: No Physical Exam Vitals Vital Signs Date Temp Pulse Resp B/P (MAP) Pulse Ox O2 O2 Flow FiO2 Time Delivery Rate 04/16/18 97.0 111 16 147/68 100 04:42 (94) Physical Exam Const: No acute distress Neck: Full range of motion. No meningismus. No midline tenderness, bilateral paravertebral muscle tenderness to palpation Resp: Clear to auscultation bilaterally Cardio: Regular rate and rhythm, no murmurs, bilateral radial and dorsalis pedis pulses intact Abd: Soft, non tender, non distended. Normal bowel sounds Skin: No petechiae or rashes Back: No midline or flank tenderness Ext: Bilateral shoulder tenderness to palpation, range of motion intact although there is pain with motion. Neur: Awake and alert, bilateral upper and lower extremity sensation intact Psych: Normal Mood and Affect Results 24 hrs Laboratory Tests Test 04/16/18 06:43 POC Beta HCG, Qualitative NEGATIVE Current Medications Medications Dose Sig/Nathan Start Time Status Last (Trade) Ordered Route PRN Stop Time Admin Dose Reason Admin Ketorolac 30 mg ONCE STAT 04/16/18 DC 04/16/18 Tromethamine IM 06:13 04/16/18 06:45 (Toradol) 06:14 Procedures/MDM Medical Decision Making: Differential diagnosis includes but not limited to muscle strain, ligamentous sprain, dislocation, fracture Patient appeared well on physical exam. Bilateral shoulder range of motion was intact however there was mild tenderness to palpation and pain with motion Neck paravertebral muscle tenderness palpation, there is no midline tenderness to suggest fracture Patient likely has muscle strain ED course: Patient was given Toradol. Symptoms improved with treatment. Prescription(s): Patient given prescription for Motrin and [place] short course low-dose. Patient advised to follow up with PCP in 1-2 days. Patient advised to return to ED for new or worsening symptoms. Patient stable on discharge from the ED. The patient has been prescribed [place] during this encounter. The patient has been warned about the use of narcotics. The patient should not drive or operate heavy machinery while taking this medication. The patient was also warned about the addictive properties of narcotic medications. Narcan prescription was NOT provided given the following criteria 1. No more than 5 tablets of [place] 10 mg or 10 tablets of [place] 5 mg were prescribed. 2. Concomitant opiate and benzodiazepine prescriptions were not provided. 3. There is no obvious evidence of prior history of opiate abuse or overdose. Disclaimer: Inadvertent spelling and grammatical errors are likely due to EHR/dictation software use and do not reflect on the overall quality of patient care. Also, please note that the electronic time recorded on this note does not necessarily reflect the actual time of the patient encounter. Departure Diagnosis: Primary Impression: Shoulder pain Chronicity: unspecified Laterality: bilateral Qualified Codes: M25.511 - Pain in right shoulder; M25.512 - Pain in left shoulder Additional Impression: Neck pain Condition: Fair Patient Instructions: Neck Pain, No Trauma, Shoulder Pain (Uncertain Cause) Additional Instructions: Call your primary care doctor TOMORROW for an appointment during the next 1-2 days.See the doctor sooner or return here if your condition worsens before your appointment time. CHLOE WHITTAKER DO Apr 16, 2018 07:37
== END 2018-04-16 07:46 | disposition home or self-care (01) ==
LOC: FTE 04:38
DX: M25.511 Pain in right shoulder (principal); E11.9 Type 2 diabetes mellitus without complications; M25.512 Pain in left shoulder; Z79.4 Long term (current) use of insulin
CPT/HCPCS: 81025; 96372; J1885; Z7502

== ENCOUNTER 2018-04-29 17:23 | Emergency (ER) | payer MEDICAID ==
[~2018-04-29] VITALS: Ht 152.4 cm; Wt 44.3 kg
[~2018-04-29 17:23] MED LIST changes: +HYDR-4011 PO; +METH750T93 PO
[2018-04-29 17:26] VITALS: BP 100/64; PULSE 103; RESP 16; Ht 152.4 cm; Wt 44.3 kg
--- NOTE | 2018-04-29 20:21 | ERD ---
ER Documentation Chief Complaint Chief Complaint pt bib self with c/o all over body pain and nausea HPI This is a 43-year-old female presents to emerge department with complaints of generalized body ache, nauseated with no vomiting. Stated that he has been having this pain for more than a month and was referred by her primary care is physician to a specialist for pain. Patient is strongly requesting to be given morphine shot. LMP: Stated that she is on it. Denies headache, head injury, loss of consciousness, dizziness, neck pain, neck stiffness, throat pain, difficulty swallowing, difficulty breathing lying flat, shoulder pain, chest pain, back pain, abdominal pain, nausea, vomiting, cons tipation, diarrhea, urinary symptoms, or possibility being , loss of bowel and bladder control, trauma, injury, falls, difficulty walking due to pain, numbness or tingling sensation, calf pain, recent travel, recent major surgery in the last 3 weeks, calf pain, recent long travel, recent exposure to any illness, recent antibiotic use in the last 3 months, fever, chills, seizures. Past medical history: Ovarian cyst. Surgical history: Appendectomy. Social: Denies smoking, use of alcoholic beverages, use of illegal drugs. ROS All systems reviewed and are negative except as per history of present illness. Medications Home Meds Active Scripts Ibuprofen* (Motrin*) 400 Mg Tab, 400 MG PO Q6H PRN for PAIN AND OR ELEVATED TEMP, #30 TAB Prov:CHI HARRISON 04/29/18 Omeprazole* (Omeprazole*) 40 Mg Capsule.dr, 40 MG PO DAILY, #30 CAP Prov:CHI HARRISON 04/29/18 Ondansetron Hcl* (Zofran*) 4 Mg Tablet, 4 MG PO Q8H PRN for NAUSEA AND/OR VOMITING, #30 TAB Prov:CHI HARRISON 04/29/18 Baclofen* (Baclofen*) 10 Mg Tablet, 10 MG PO Q8 PRN for PAIN LEVEL 6-10, #20 TAB Prov:CHI HARRISON 04/29/18 Methocarbamol* (Robaxin*) 750 Mg Tablet, 750 MG PO TID PRN for MUSCLE SPASMS, #30 TAB Prov:CHLOE WHITTAKER DO 04/16/18 Hydrocodone/Acetaminophen ([place] 5-325 Tablet) 1 Each Tablet, 1 TAB PO Q6H PRN for PAIN, #10 TAB Prov:CHLOE WHITTAKER DO 04/16/18 Ibuprofen* (Motrin*) 600 Mg Tab, 600 MG PO Q6H PRN for PAIN, #30 TAB Prov:CHLOE WHITTAKER DO 04/16/18 Naproxen* (Naprosyn*) 500 Mg Tablet, 500 MG PO BID PRN for PAIN AND/OR INFLAMMATION, #30 TAB Prov:EULALIA LOVE PA-C 03/18/18 Ondansetron (Ondansetron Odt) 4 Mg Tab.rapdis, 4 MG PO Q6H PRN for NAUSEA AND/OR VOMITING, #10 TAB Prov:EULALIA LOVE PA-C 03/18/18 Cephalexin* (Keflex*) 500 Mg Capsule, 500 MG PO TID for 5 Days, CAP Prov:ELIEZER MUSE PA-C 03/09/18 Ibuprofen* (Motrin*) 600 Mg Tab, 600 MG PO Q6, #20 TAB Prov:CHLOE QUINONEZ MD 01/11/18 Reported Medications Ibuprofen* (Ibuprofen*) 600 Mg Tablet, 600 MG PO NEEDED, TAB 01/11/18 Insulin Glargine* (Lantus*) 100 Unit/Ml Soln, 15 UNIT SC BID, #1 VIAL 01/11/18 Allergies Allergies: Coded Allergies: No Known Allergy (Unverified , 04/29/18) PMhx/Soc History of Surgery: Yes (appendectomy) Anesthesia Reaction: No Hx Neurological Disorder: No Hx Respiratory Disorders: No Hx Cardiac Disorders: No Hx Psychiatric Problems: No Hx Miscellaneous Medical Probl: Yes (DM type I, OVARIAN CYST) Hx Alcohol Use: No Hx Substance Use: No Hx Tobacco Use: No Smoking Status: Never smoker Physical Exam Vitals Physical Exam Const: No acute distress Head: Atraumatic Eyes: Normal Conjunctiva ENT: Normal External Ears, Nose and Mouth. Neck: Full range of motion. No meningismus. Resp: Clear to auscultation bilaterally Cardio: Regular rate and rhythm, no murmurs Abd: Soft, non tender, non distended. Normal bowel sounds. No abdominal tenderness. Skin: No petechiae or rashes. Color appears normal for ethnicity. Back: No midline or flank tenderness Ext: No cyanosis, or edema Neur: Awake and alert. No neurological deficits. Psych: Normal Mood and Affect Results 24 hrs Current Medications Medications Dose Sig/Nathan Start Time Status Last (Trade) Ordered Route PRN Stop Time Admin Dose Reason Admin 1 tab ONCE ONCE 04/29/18 DC 04/29/18 Acetaminophen PO 20:30 20:33 / 04/29/18 20:31 Hydrocodone Bitart ([place] (10/325)) Ondansetron 4 mg ONCE STAT 04/29/18 DC 04/29/18 HCl (Zofran ODT 20:22 20:32 Odt) 04/29/18 20:24 Ketorolac 30 mg ONCE STAT 04/29/18 DC 04/29/18 Tromethamine IM 21:23 21:28 (Toradol) 04/29/18 21:24 Procedures/MDM Diagnostic tests: Clinical exam. Treatment: [place] p.o. Re-evaluation: Denies pain. No neurological deficit. Ambulatory with steady gait. Differential diagnosis I have low suspicion for sepsis, emergent condition and/or life-threatening condition at this time. Final diagnosis: Generalized pain. Prescription: Motrin. Baclofen. Zofran. Omeprazole. Follow-up with PCP in the next 24-48 hours. PCP to refer patient to pain specialist in the next 24-48 hours. Come back here in the emergency department for any new symptoms or any worsening symptoms. All questions and concerns were answered. Patient and family members verbalized understanding and agreed with plan of care. Hemodynamically stable on discharge. Departure Diagnosis: Primary Impression: Pain Condition: Stable Additional Instructions: Follow-up with PCP in the next 24-48 hours. PCP to refer patient to pain specialist in the next 24-48 hours. Come back here in the emergency department for any new symptoms or any worsening symptoms. CHI HARRISON Apr 29, 2018 20:21
[2018-04-29] MEDS ORDERED: ONDANSETRON (ODT) 4 MG TAB ODT STA (20:22)
[2018-04-29] MEDS ORDERED: HYDROCODONE/APAP (10/325) TAB PO ONE (20:30)
[2018-04-29] MEDS ORDERED: BACL10TA PO (20:48)
[2018-04-29] MEDS ORDERED: ONDA4TAB8 PO (20:48)
[2018-04-29] MEDS ORDERED: IBUP-1561 PO (20:49)
[2018-04-29] MEDS ORDERED: OMEP40CA6 PO (20:49)
[2018-04-29] MEDS ORDERED: KETOROLAC 30 MG INJ IM STA (21:23)
== END 2018-04-29 21:32 | disposition home or self-care (01) ==
LOC: FTE 17:23
DX: R52 Pain, unspecified (principal); E10.9 Type 1 diabetes mellitus without complications; Z79.4 Long term (current) use of insulin
CPT/HCPCS: J1885; Z7610; 96372

== ENCOUNTER 2018-05-04 10:22 | Emergency (ER) | payer MEDICAID ==
[~2018-05-04] VITALS: Wt 45.2 kg
[~2018-05-04 10:22] MED LIST changes: +BACL10TA PO; +IBUP-1561 PO; +OMEP40CA6 PO; +ONDA4TAB8 PO
[2018-05-04] MEDS ORDERED: SOD CHLORIDE 0.9% 1,000 ML IV STA (11:36)
[2018-05-04] MEDS ORDERED: ONDANSETRON 4 MG INJ IV STA ×2 (11:36→14:20)
[2018-05-04] MEDS ORDERED: KETOROLAC 30 MG INJ IV STA (11:36)
--- NOTE | 2018-05-04 11:43 | ERD ---
ER Documentation Chief Complaint Chief Complaint BODY PAIN, LIGHT HEADED HPI 43-year-old female with a history of insulin-dependent type 2 diabetes presents with complaint of headache, nausea, and vomiting, for the past month. States that she has a history of headaches. States the headache comes on gradually and they are intermittent. Vomiting is intermittent, last time she vomited was at 4 AM. States that she is been taking Motrin for the headache. States that when she gets these headaches and nausea she is able to to get an IV with fluids and Zofran as well as pain meds and that resolves them. Denies sudden onset of headache, chest pain, shortness of breath, worse headache of life, weakness, altered mental status, fevers, chills, focal deficits, syncope, polyuria, polyphagia, polydipsia. Denies other past medical history. Denies allergies. Taking insulin. Denies surgeries. Denies alcohol, tobacco, drug use. Up to date on vaccines. ROS All systems reviewed and are negative except as per history of present illness. Medications Home Meds Active Scripts Hydrocodone/Acetaminophen ([place] 5-325 Tablet) 1 Each Tablet, 1 TAB PO Q6H PRN for PAIN, #10 TAB Prov:EULALIA MARCELO 05/04/18 Ondansetron (Ondansetron Odt) 4 Mg Tab.rapdis, 4 MG PO Q6H PRN for NAUSEA AND/OR VOMITING, #10 TAB Prov:EULALIA MARCELO 05/04/18 Ibuprofen* (Motrin*) 600 Mg Tab, 600 MG PO Q6 for headache, #30 TAB Prov:EULALIA MARCELO 05/04/18 Ibuprofen* (Motrin*) 400 Mg Tab, 400 MG PO Q6H PRN for PAIN AND OR ELEVATED TEMP, #30 TAB Prov:CHI HARRISON F 04/29/18 Omeprazole* (Omeprazole*) 40 Mg Capsule.dr, 40 MG PO DAILY, #30 CAP Prov:PASILABANCHI F 04/29/18 Ondansetron Hcl* (Zofran*) 4 Mg Tablet, 4 MG PO Q8H PRN for NAUSEA AND/OR VOMITING, #30 TAB Prov:PASILACHI FLORES F 04/29/18 Baclofen* (Baclofen*) 10 Mg Tablet, 10 MG PO Q8 PRN for PAIN LEVEL 6-10, #20 TAB Prov:CHI HARRISON 04/29/18 Methocarbamol* (Robaxin*) 750 Mg Tablet, 750 MG PO TID PRN for MUSCLE SPASMS, #30 TAB Prov:PANFILOCHLOE 04/16/18 Hydrocodone/Acetaminophen ([place] 5-325 Tablet) 1 Each Tablet, 1 TAB PO Q6H PRN for PAIN, #10 TAB Prov:CHLOE WHITTAKER DO 04/16/18 Ibuprofen* (Motrin*) 600 Mg Tab, 600 MG PO Q6H PRN for PAIN, #30 TAB Prov:WHITTAKERCHLOE 04/16/18 Naproxen* (Naprosyn*) 500 Mg Tablet, 500 MG PO BID PRN for PAIN AND/OR INFLAMMATION, #30 TAB Prov:EULALIA LVOE PA-C 03/18/18 Ondansetron (Ondansetron Odt) 4 Mg Tab.rapdis, 4 MG PO Q6H PRN for NAUSEA AND/OR VOMITING, #10 TAB Prov:EULALIA LOVE PA-C 03/18/18 Cephalexin* (Keflex*) 500 Mg Capsule, 500 MG PO TID for 5 Days, CAP Prov:ELIEZER MUSE PA-C 03/09/18 Ibuprofen* (Motrin*) 600 Mg Tab, 600 MG PO Q6, #20 TAB Prov:CHLOE QUINONEZ MD 01/11/18 Reported Medications Ibuprofen* (Ibuprofen*) 600 Mg Tablet, 600 MG PO NEEDED, TAB 01/11/18 Insulin Glargine* (Lantus*) 100 Unit/Ml Soln, 15 UNIT SC BID, #1 VIAL 01/11/18 Allergies Allergies: Coded Allergies: No Known Allergy (Unverified , 04/29/18) PMhx/Soc History of Surgery: Yes (appendectomy) Anesthesia Reaction: No Hx Neurological Disorder: No Hx Respiratory Disorders: No Hx Cardiac Disorders: No Hx Psychiatric Problems: No Hx Miscellaneous Medical Probl: Yes (DM type I, OVARIAN CYST) Hx Alcohol Use: No Hx Substance Use: No Hx Tobacco Use: No Smoking Status: Never smoker FmHx Family History: No diabetes, No coronary disease, No other Physical Exam Vitals Vital Signs Date Temp Pulse Resp B/P (MAP) Pulse Ox O2 O2 Flow FiO2 Time Delivery Rate 05/04/18 98.0 74 18 115/75 99 Room Air 15:20 (88) 05/04/18 97.8 94 18 115/71 97 Room Air 14:36 (86) 05/04/18 98.1 91 18 120/71 99 10:26 (87) Physical Exam Const: No acute distress Head: Atraumatic Eyes: Normal Conjunctiva ENT: Normal External Ears, Nose and Mouth. Neck: Full range of motion. No meningismus. Resp: Clear to auscultation bilaterally Cardio: Regular rate and rhythm, no murmurs Abd: Soft, non tender, non distended. Normal bowel sounds Skin: No petechiae or rashes Back: No midline or flank tenderness Ext: No cyanosis, or edema Neur: Awake and alert Psych: Normal Mood and Affect Neuro: M/S: Alert and oriented Face: EOMI, face and pharynx with normal sensation and function Motor: Normal strength throughout Sensation: Normal sensation throughout Speech: Normal Cerebel: Normal coordination Normal gait Normal finger to nose DTR: 2+ and symmetric upper/lower extremities Results 24 hrs Laboratory Tests Test 05/04/18 12:26 05/04/18 12:29 Bedside Glucose 182 mg/dL POC Beta HCG, Qualitative NEGATIVE Current Medications Medications Dose Sig/Nathan Start Time Status Last (Trade) Ordered Route PRN Stop Time Admin Dose Reason Admin Sodium 1,000 ml @ Q1H STAT 05/04/18 DC 05/04/18 Chloride 1,000 mls/hr IV 11:36 12:36 05/04/18 12:36 Ketorolac 30 mg ONCE STAT 05/04/18 DC 05/04/18 Tromethamine IV 11:36 12:37 (Toradol) 05/04/18 11:52 Ondansetron 2 mg ONCE STAT 05/04/18 DC 05/04/18 HCl (Zofran IV 11:36 12:37 Inj) 05/04/18 11:52 10 mg ONCE STAT 05/04/18 DC 05/04/18 Metoclopramid IV 13:40 13:47 e HCl 05/04/18 13:41 (Reglan) 25 mg ONCE STAT 05/04/18 DC 05/04/18 Diphenhydrami IV 13:40 13:47 ne HCl 05/04/18 13:41 (Benadryl) Morphine 2 mg ONCE STAT 05/04/18 DC 05/04/18 Sulfate IV 14:20 14:29 (morphine) 05/04/18 14:22 Ondansetron 2 mg ONCE STAT 05/04/18 DC 05/04/18 HCl (Zofran IV 14:20 14:28 Inj) 05/04/18 14:22 Procedures/MDM 43-year-old female with a history of insulin-dependent type 2 diabetes presents with complaint of headache, nausea, and vomiting, for the past month. States that she has a history of headaches. Vomiting is intermittent, last time she vomited was at 4 AM. States that she is been taking Motrin for the headache. States that when she gets these headaches and nausea she is able to to get an IV with fluids and Zofran as well as pain meds and that resolves them. Denies chest pain, shortness of breath, worse headache of life, weakness, altered mental status, focal deficits, syncope, polyuria, polyphagia, polydipsia. Denies other past medical history. Denies allergies. Taking insulin. Denies surgeries. Denies alcohol, tobacco, drug use. Up to date on vaccines. Patient has no neurological deficits and does not meet ACEP guidelines for CT. Patient was given IV fluids, Zofran, and ketorolac in the ER. After ketorolac was administered patient stated that her headache still has not resolved therefore patient was given metoclopramide along with Benadryl. This too did not resolve her headaches so decision was made to give patient IV morphine per her request. Patient given 2 mg of IV morphine successfully resolved her headache. Advised patient that these headaches need to be managed in a primary care basis as we can only help with pain control in the ER and a temporary basis. I have low suspicion for intracranial hemorrhage, elevated intracranial pressure, intracranial mass, aneurysm, meningitis, malignant hypertension, giant cell arteritis, carotid dissection, intracranial abscess, cerebral venous thrombosis, CO2 poisoning, or other emergent causes of headache based on patients history and exam. Patient discharged with strict ER precautions. Patient advised to follow up with PMD. All questions answered at discharge. Departure Diagnosis: Primary Impression: Headache Headache type: unspecified Headache chronicity pattern: acute headache Intractability: not intractable Qualified Codes: R51 - Headache Condition: Stable EULALIA MARCELO May 04, 2018 11:43
[2018-05-04] MEDS ORDERED: IBUP-1542 PO (12:42)
[2018-05-04] MEDS ORDERED: ONDA4TAB14 PO (12:43)
[2018-05-04] MEDS ORDERED: DIPHENHYDRAMINE 50 MG INJ IV STA (13:40)
[2018-05-04] MEDS ORDERED: METOCLOPRAMIDE 10 MG INJ IV STA (13:40)
[2018-05-04] MEDS ORDERED: morphine 2 MG INJ IV STA (14:20)
[2018-05-04] MEDS ORDERED: HYDR-4011 PO (15:13)
[2018-05-04 15:20] VITALS: BP 115/75; PULSE 74; RESP 18
== END 2018-05-04 15:20 | disposition home or self-care (01) ==
LOC: FTE 10:22
DX: R51 Headache (principal)
CPT/HCPCS: 81025; 82962; J1200; J1885; J2270; J2405; J2765; J7030; 96361; 96374; 96375; 96376

== ENCOUNTER 2018-05-07 22:07 | Emergency (ER) | payer MEDICAID ==
[~2018-05-07] VITALS: Ht 157.5 cm; Wt 45.0 kg
[2018-05-07 22:24] VITALS: Ht 157.5 cm; Wt 45.0 kg
--- NOTE | 2018-05-07 22:51 | ERD ---
ER Documentation Chief Complaint Chief Complaint Syncope X 2 hrs, SHEEHAN, N/V X 2 months HPI 43-year-old female presents with near syncopal episode earlier today. She has a history of insulin-dependent diabetes, she did not actually have a syncopal episode, she had been having posterior headache for about the last 2 months, she states that she has seen her primary care doctor for this, and she is scheduled to have brain imaging performed. She denies any chest pain or shortness of breath, symptoms are intermittent, there are no not alleviated or aggravated by anything. She has not had a fever, she did not have any head trauma. ROS All systems reviewed and are negative except as per history of present illness. Medications Home Meds Active Scripts Sumatriptan (Imitrex) 5 Mg Central, 5 MG NS ONCE PRN for HEADACHE for 3 Days, SPRAY May repeat x 1 after 2 hours if headache persists Prov:KENTON HOGAN MD 05/08/18 Hydrocodone/Acetaminophen ([place] 5-325 Tablet) 1 Each Tablet, 1 TAB PO Q6H PRN for PAIN, #10 TAB Prov:EULALIA MARCELO 05/04/18 Ondansetron (Ondansetron Odt) 4 Mg Tab.rapdis, 4 MG PO Q6H PRN for NAUSEA AND/OR VOMITING, #10 TAB Prov:EULALIA MARCELO 05/04/18 Ibuprofen* (Motrin*) 600 Mg Tab, 600 MG PO Q6 for headache, #30 TAB Prov:EULALIA MARCELO 05/04/18 Ibuprofen* (Motrin*) 400 Mg Tab, 400 MG PO Q6H PRN for PAIN AND OR ELEVATED TEMP, #30 TAB Prov:CHI HARRISON 04/29/18 Omeprazole* (Omeprazole*) 40 Mg Capsule.dr, 40 MG PO DAILY, #30 CAP Prov:CHI HARRISON 04/29/18 Ondansetron Hcl* (Zofran*) 4 Mg Tablet, 4 MG PO Q8H PRN for NAUSEA AND/OR VOMITING, #30 TAB Prov:CHI HARRISON 04/29/18 Baclofen* (Baclofen*) 10 Mg Tablet, 10 MG PO Q8 PRN for PAIN LEVEL 6-10, #20 TAB Prov:CHI HARRISON 04/29/18 Methocarbamol* (Robaxin*) 750 Mg Tablet, 750 MG PO TID PRN for MUSCLE SPASMS, #30 TAB Prov:PANFILOCHLOE 04/16/18 Hydrocodone/Acetaminophen ([place] 5-325 Tablet) 1 Each Tablet, 1 TAB PO Q6H PRN for PAIN, #10 TAB Prov:PANFILOCHLOE 04/16/18 Ibuprofen* (Motrin*) 600 Mg Tab, 600 MG PO Q6H PRN for PAIN, #30 TAB Prov:CHLOE WHITTAKER 04/16/18 Naproxen* (Naprosyn*) 500 Mg Tablet, 500 MG PO BID PRN for PAIN AND/OR INFLAMMATION, #30 TAB Prov:EULALIA LOVE PA-C 03/18/18 Ondansetron (Ondansetron Odt) 4 Mg Tab.rapdis, 4 MG PO Q6H PRN for NAUSEA AND/OR VOMITING, #10 TAB Prov:EULALIA LOVE PA-C 03/18/18 Cephalexin* (Keflex*) 500 Mg Capsule, 500 MG PO TID for 5 Days, CAP Prov:ELIEZER MUSE PA-C 03/09/18 Ibuprofen* (Motrin*) 600 Mg Tab, 600 MG PO Q6, #20 TAB Prov:CHLOE QUINONEZ MD 01/11/18 Reported Medications Ibuprofen* (Ibuprofen*) 600 Mg Tablet, 600 MG PO NEEDED, TAB 01/11/18 Insulin Glargine* (Lantus*) 100 Unit/Ml Soln, 15 UNIT SC BID, #1 VIAL 01/11/18 Allergies Allergies: Coded Allergies: No Known Allergy (Unverified , 04/29/18) PMhx/Soc History of Surgery: Yes (appendectomy) Anesthesia Reaction: No Hx Neurological Disorder: No Hx Respiratory Disorders: No Hx Cardiac Disorders: No Hx Psychiatric Problems: No Hx Miscellaneous Medical Probl: Yes (DM type I, OVARIAN CYST) Hx Alcohol Use: No Hx Substance Use: No Hx Tobacco Use: No Physical Exam Vitals Vital Signs Date Temp Pulse Resp B/P (MAP) Pulse Ox O2 O2 Flow FiO2 Time Delivery Rate 05/08/18 94 19 128/79 100 Room Air 00:29 (95) 05/07/18 98.6 114 18 135/80 100 22:24 (98) Physical Exam Const: Well-developed well-nourished, no acute distress Head: Atraumatic Eyes: Normal Conjunctiva ENT: Normal External Ears, Nose and Mouth. Neck: Full range of motion. No meningismus. Resp: Clear to auscultation bilaterally Cardio: Regular rate and rhythm, no murmurs Abd: Soft, non tender, non distended. Normal bowel sounds Skin: No petechiae or rashes Back: No midline or flank tenderness Ext: No cyanosis, or edema Neur: Awake and alert, cranial nerves II through XII intact, no cerebellar ataxia Psych: Normal Mood and Affect Result Diagram: 05/07/18231805/07/182318 Results 24 hrs Laboratory Tests Test 05/07/18 23:01 05/07/18 23:16 05/07/18 23:18 05/07/18 23:19 Bedside Glucose 197 mg/dL Bedside Urine pH 6.5 (LAB) Bedside Urine Negative Protein (LAB) Bedside Urine Negative Glucose (UA) Bedside Urine Negative Ketones (LAB) Bedside Urine Blood Negative Bedside Urine Negative Nitrite (LAB) Bedside Urine Negative Leukocyte Esterase (L POC Beta HCG, NEGATIVE Qualitative White Blood Count 11.2 10^3/ul Red Blood Count 3.93 10^6/ul Hemoglobin 9.9 g/dl Hematocrit 31.7 % Mean Corpuscular 80.7 fl Volume Mean Corpuscular 25.2 pg Hemoglobin Mean Corpuscular 31.2 g/dl Hemoglobin Concent Red Cell 16.1 % Distribution Width Platelet Count 314 10^3/UL Mean Platelet 11.0 fl Volume Immature 0.400 % Granulocytes % Neutrophils % 81.3 % Lymphocytes % 11.9 % Monocytes % 5.3 % Eosinophils % 0.8 % Basophils % 0.3 % Nucleated Red Blood 0.0 /100WBC Cells % Immature 0.040 10^3/ul Granulocytes # Neutrophils # 9.1 10^3/ul Lymphocytes # 1.3 10^3/ul Monocytes # 0.6 10^3/ul Eosinophils # 0.1 10^3/ul Basophils # 0.0 10^3/ul Nucleated Red Blood 0.0 10^3/ul Cells # Prothrombin Time 11.8 Sec Prothrombin Time 0.9 Ratio INR International 0.86 Normalized Ratio Sodium Level 136 mmol/L Potassium Level 4.2 mmol/L Chloride Level 94 mmol/L Carbon Dioxide 31 mmol/L Level Anion Gap 11 Blood Urea Nitrogen 14 mg/dl Creatinine 0.71 mg/dl Est Glomerular > 60 mL/min Filtrat Rate mL/min Glucose Level 201 mg/dl Calcium Level 10.7 mg/dl Troponin I < 0.012 ng/ml Current Medications Medications Dose Sig/Nathan Start Time Status Last (Trade) Ordered Route PRN Stop Time Admin Dose Reason Admin 1,000 mg ONCE STAT 05/07/18 DC Acetaminophen PO 23:08 (Tylenol 05/07/18 23:09 Tab) Ibuprofen 600 mg ONCE ONCE 05/07/18 DC (Motrin) PO 23:30 05/07/18 23:31 Ketorolac 30 mg ONCE STAT 05/07/18 DC 05/07/18 Tromethamine IV 23:26 23:31 (Toradol) 05/07/18 23:27 Morphine 4 mg ONCE STAT 05/08/18 DC 05/08/18 Sulfate IV 01:29 01:43 (morphine) 05/08/18 01:37 Ondansetron 4 mg ONCE STAT 05/08/18 DC 05/08/18 HCl (Zofran IV 01:29 01:43 Inj) 05/08/18 01:37 Procedures/MDM 43-year-old female presents for evaluation of near syncopal episode. Patient reports that she had a prodrome of lightheadedness prior to episode, she did not have any exertional syncope, her EKG showed no evidence of arrhythmia, cardiac workup was negative in the ED. In regards to her headache, this is been ongoing for months now, has been gradual onset, it is most likely a tension-like headache, however she is scheduled for outpatient brain imaging, which I think is reasonable given the prolonged nature of her symptoms. Patient requested morphine for her headache, I did caution her on the risk of rebound headache with narcotics, a single dose was provided. She is currently taking hydrocodone, I offered a short trial of sumatriptan for headache, but re commended she follow-up with her primary care doctor for further management. Patient was agreeable to this at discharge she was in no acute distress. EKG: Rate/Rhythm: Normal Sinus Rhythm QRS, ST, T-waves: No changes consistent w/ acute ischemia Impression: No evidence of ischemia or arrhythmia Departure Diagnosis: Primary Impression: Near syncope Additional Impression: Headache Headache type: unspecified Headache chronicity pattern: chronic headache Intractability: not intractable Qualified Codes: R51 - Headache Condition: Stable KENTON HOGAN MD May 07, 2018 22:51
[2018-05-07] MEDS ORDERED: ACETAMINOPHEN 500 MG TAB PO STA (23:08)
[2018-05-07] MEDS ORDERED: KETOROLAC 30 MG INJ IV STA (23:26)
[2018-05-07] MEDS ORDERED: IBUPROFEN 600 MG TAB PO ONE (23:30)
[2018-05-08] MEDS ORDERED: morphine 4 MG/ML VIAL IV STA (01:29)
[2018-05-08] MEDS ORDERED: ONDANSETRON 4 MG INJ IV STA (01:29)
[2018-05-08] MEDS ORDERED: SUMA5SPR NS (01:40)
[2018-05-08 01:54] VITALS: BP 122/86; PULSE 91; RESP 16
== END 2018-05-08 01:58 | disposition home or self-care (01) ==
LOC: E/R 22:07
DX: R55 Syncope and collapse (principal); E10.9 Type 1 diabetes mellitus without complications; R51 Headache; R11.2 Nausea with vomiting, unspecified; Z79.4 Long term (current) use of insulin
CPT/HCPCS: 71045; 80048; 81003; 81025; 82962; 84484; 85025; 85610; 93005; J1885; J2270; J2405; 96374; 96375

== ENCOUNTER 2018-07-09 16:35 | Emergency (ER) | payer MEDICAID ==
[~2018-07-09] VITALS: Wt 42.6 kg
[~2018-07-09 16:35] MED LIST changes: +SUMA5SPR NS
[2018-07-09] MEDS ORDERED: SOD CHLORIDE 0.9% 1,000 ML IV STA ×2 (17:25→21:35)
[2018-07-09] MEDS ORDERED: KETOROLAC 30 MG INJ IV STA (19:01)
[2018-07-09] MEDS ORDERED: ONDANSETRON 4 MG INJ IV STA ×2 (19:25→21:35)
--- NOTE | 2018-07-09 21:25 | ERD ---
ER Documentation Chief Complaint Chief Complaint WEAKNESS, BODY PAIN, LIGHT HEADED HPI This is a 43-year-old female with a known history of insulin-dependent diabetes mellitus. The patient states she is been noncompliant with her medications. She stated last time she checked her sugar was roughly 2 weeks ago. She had a decreased appetite. She presents to the emergency department brought in by her [id number] she states she has been having dizziness for over 2 weeks. She is not extends any polyuria polydipsia. She denies a headache. She denies any chest pain. She has no shortness of breath at rest or exertion. She was diagnosed with diabetes 16 years ago. She also states she has a history of an ovarian cyst. She has no [employer] follow-up as they indicated that there could be cervical carcinoma but the patient denies any shortness of breath at rest or exertion. He has no chest pain. She denies any abdominal pain at this time. She denies any abnormal vaginal bleeding. She said no fevers or shaking or chills. ROS All systems reviewed and are negative except as per history of present illness. Medications Home Meds Active Scripts Cephalexin* (Keflex*) 500 Mg Capsule, 500 MG PO QID for 5 Days, CAP Prov:OMID MINOR MD 07/09/18 Ondansetron Hcl* (Zofran*) 4 Mg Tablet, 4 MG PO Q8H PRN for NAUSEA AND/OR VOMITING, #30 TAB Prov:CHI HARRISON 04/29/18 Ondansetron (Ondansetron Odt) 4 Mg Tab.rapdis, 4 MG PO Q6H PRN for NAUSEA AND/OR VOMITING, #10 TAB Prov:EULALIA LOVE PA-C 03/18/18 Reported Medications Ibuprofen* (Ibuprofen*) 600 Mg Tablet, 600 MG PO Q6 PRN for PAIN LEVEL 4-7, TAB 01/11/18 Insulin Glargine* (Lantus*) 100 Unit/Ml Soln, 15 UNIT SC BID, #1 VIAL 01/11/18 Discontinued Scripts Sumatriptan (Imitrex) 5 Mg [place], 5 MG NS ONCE PRN for HEADACHE for 3 Days, SPRAY May repeat x 1 after 2 hours if headache persists Prov:KENTON HOGAN MD 05/08/18 Hydrocodone/Acetaminophen (Lutz 5-325 Tablet) 1 Each Tablet, 1 TAB PO Q6H PRN for PAIN, #10 TAB Prov:DAVIANEULALIA 05/04/18 Ondansetron (Ondansetron Odt) 4 Mg Tab.rapdis, 4 MG PO Q6H PRN for NAUSEA AND/OR VOMITING, #10 TAB Prov:DAVIANDEEPAKEULALIA 05/04/18 Ibuprofen* (Motrin*) 600 Mg Tab, 600 MG PO Q6 for headache, #30 TAB Prov:JOSUÉCAROLEULALIA SALCIDO 05/04/18 Ibuprofen* (Motrin*) 400 Mg Tab, 400 MG PO Q6H PRN for PAIN AND OR ELEVATED TEMP, #30 TAB Prov:CHI HARRISON 04/29/18 Omeprazole* (Omeprazole*) 40 Mg Capsule.dr, 40 MG PO DAILY, #30 CAP Prov:PASILACHI FLORES F 04/29/18 Baclofen* (Baclofen*) 10 Mg Tablet, 10 MG PO Q8 PRN for PAIN LEVEL 6-10, #20 TAB Prov:CHI HARRISON 04/29/18 Methocarbamol* (Robaxin*) 750 Mg Tablet, 750 MG PO TID PRN for MUSCLE SPASMS, #30 TAB Prov:CHLOE WHITTAKER DO 04/16/18 Hydrocodone/Acetaminophen (Lutz 5-325 Tablet) 1 Each Tablet, 1 TAB PO Q6H PRN for PAIN, #10 TAB Prov:CHLOE WHITTAKER DO 04/16/18 Ibuprofen* (Motrin*) 600 Mg Tab, 600 MG PO Q6H PRN for PAIN, #30 TAB Prov:CHLOE WHITTAKER DO 04/16/18 Naproxen* (Naprosyn*) 500 Mg Tablet, 500 MG PO BID PRN for PAIN AND/OR INFLAMMATION, #30 TAB Prov:EULALIA LOVE PA-C 03/18/18 Cephalexin* (Keflex*) 500 Mg Capsule, 500 MG PO TID for 5 Days, CAP Prov:ELIEZER MUSE PA-C 03/09/18 Ibuprofen* (Motrin*) 600 Mg Tab, 600 MG PO Q6, #20 TAB Prov:CHLOE QUINONEZ MD 01/11/18 Allergies Allergies: Coded Allergies: No Known Allergy (Unverified , 07/09/18) PMhx/Soc History of Surgery: Yes (appendectomy) Anesthesia Reaction: No Hx Neurological Disorder: No Hx Respiratory Disorders: No Hx Cardiac Disorders: No Hx Psychiatric Problems: No Hx Miscellaneous Medical Probl: Yes (DM type I, OVARIAN CYST) Hx Alcohol Use: No Hx Substance Use: No Hx Tobacco Use: No Smoking Status: Never smoker Physical Exam Vitals Vital Signs Date Temp Pulse Resp B/P (MAP) Pulse Ox O2 O2 Flow FiO2 Time Delivery Rate 07/09/18 87 16 120/81 100 Room Air 19:05 (94) 07/09/18 79 16 83/59 (67) 99 Room Air 18:31 07/09/18 98.1 91 18 86/53 (64) 99 16:40 Physical Exam Constitutional:Well-developed. Cachectic HEENT:Normocephalic. Atraumatic.Pupils were equal round reactive to light. Very mucous membranes.No tonsillar exudates. Neck: No nuchal rigidity. No lymphadenopathy. No posterior cervical spine tenderness or step-offs. Respiratory: Not using accessory muscles of respiration.Lungs were clear to auscultation bilaterally. No rhonchi. No rales. No wheezing. Cardiovascular: Regular rate regular rhythm.No murmurs. No rubs were appreciated.S1, S2 normal. Distal pulses are palpable 2+ bilaterally. GI: Abdomen was soft. Nontender. Non Distended. No pulsatile abdominal masses or bruits. No rebound. No guarding. Bowel sounds were present and normal. Muscle skeletal: Full range of motion of both the upper and lower extremities bilaterally.Normal muscle tone.No assymetrical calf tenderness or swelling. Skin: No petechia, no purpura. No lesions on the palms or the soles of the feet. No maculopapular rash. NEURO: Patient was alert, awake, orientated x3.No facial droop. Gait observed and normal with no ataxia.Speech had regular rate and rhythm. No focal neurological deficits. Result Diagram: 07/09/18 1715 07/09/18 171 Results 24 hrs Laboratory Tests Test 07/09/18 17:15 07/09/18 17:18 07/09/18 21:20 07/09/18 21:29 White Blood Count 9.8 10^3/ul Red Blood Count 4.16 10^6/ul Hemoglobin 10.9 g/dl Hematocrit 34.0 % Mean Corpuscular 81.7 fl Volume Mean Corpuscular 26.2 pg Hemoglobin Mean Corpuscular 32.1 g/dl Hemoglobin Concent Red Cell 17.0 % Distribution Width Platelet Count 313 10^3/UL Mean Platelet 10.7 fl Volume Immature 0.300 % Granulocytes % Neutrophils % 79.2 % Lymphocytes % 13.3 % Monocytes % 6.2 % Eosinophils % 0.6 % Basophils % 0.4 % Nucleated Red Blood 0.0 /100WBC Cells % Immature 0.030 10^3/ul Granulocytes # Neutrophils # 7.8 10^3/ul Lymphocytes # 1.3 10^3/ul Monocytes # 0.6 10^3/ul Eosinophils # 0.1 10^3/ul Basophils # 0.0 10^3/ul Nucleated Red Blood 0.0 10^3/ul Cells # Prothrombin Time 13.3 Sec Prothrombin Time 1.0 Ratio INR International 1.00 Normalized Ratio Activated 29.1 Sec Partial Thromboplas t Time Sodium Level 135 mmol/L Potassium Level 3.8 mmol/L Chloride Level 95 mmol/L Carbon Dioxide 28 mmol/L Level Anion Gap 12 Blood Urea Nitrogen 34 mg/dl Creatinine 1.93 mg/dl Est Glomerular 28 mL/min Filtrat Rate mL/min Glucose Level 294 mg/dl Calcium Level 9.4 mg/dl Total Bilirubin 0.5 mg/dl Direct Bilirubin 0.00 mg/dl Indirect Bilirubin 0.5 mg/dl Aspartate Amino 20 IU/L Transf (AST/SGOT) Alanine 16 IU/L Aminotransferase (A LT/SGPT) Alkaline 85 IU/L Phosphatase Troponin I < 0.012 ng/ml Total Protein 7.9 g/dl Albumin 4.4 g/dl Globulin 3.50 g/dl Albumin/Globulin 1.25 Ratio Amylase Level 147 U/L Lipase 254 U/L Bedside Glucose 297 mg/dL Urine Color YELLOW Urine Clarity SLIGHTLY CLOUDY Urine pH 5.0 Urine Specific 1.015 [place] Urine Ketones TRACE mg/dL Urine Nitrite NEGATIVE mg/dL Urine Bilirubin NEGATIVE mg/dL Urine Urobilinogen NEGATIVE mg/dL Urine Leukocyte TRACE Peter/ul Esterase Urine Microscopic 2 /HPF RBC Urine Microscopic 9 /HPF WBC Urine Squamous FEW /HPF Epithelial Cells Urine Bacteria FEW /HPF Urine Hemoglobin 3+ mg/dL Urine Glucose 1+ mg/dL Urine Total Protein NEGATIVE mg/dl Bedside Urine pH 5.0 (LAB) Bedside Urine Trace Protein (LAB) Bedside Urine 0.1% Glucose (UA) Bedside Urine 1+ Ketones (LAB) Bedside Urine Blood 2+ Bedside Urine Negative Nitrite (LAB) Bedside Urine Trace Leukocyte Esterase (L Test 07/09/18 21:38 Bedside Glucose 267 mg/dL Current Medications Medications Dose Sig/Nathan Start Time Status Last (Trade) Ordered Route PRN Stop Time Admin Dose Reason Admin Sodium 1,000 ml @ Q1H STAT 07/09/18 DC 07/09/18 Chloride 1,000 mls/hr IV 17:25 07/09/18 18:31 18:24 Ketorolac 30 mg ONCE STAT 07/09/18 DC 07/09/18 Tromethamine IV 19:01 07/09/18 19:05 (Toradol) 19:02 Ondansetron 4 mg ONCE STAT 07/09/18 DC 07/09/18 HCl (Zofran IV 19:25 07/09/18 19:33 Inj) 19:30 Sodium 1,000 ml @ Q1H STAT 07/09/18 Chloride 1,000 mls/hr IV 21:35 07/09/18 22:34 Morphine 4 mg ONCE STAT 07/09/18 DC Sulfate IV 21:35 07/09/18 (morphine) 21:36 Ondansetron 4 mg ONCE STAT 07/09/18 DC HCl (Zofran IV 21:35 07/09/18 Inj) 21:36 Insulin 5 unit ONCE STAT 07/09/18 DC Human SC 21:36 07/09/18 Lispro 21:38 (Humalog) Procedures/MDM This is a 41-year-old female presented to the emergency department with hyperglycemia. There is no evidence of ketosis. The patient appeared clinica lly dehydrated was hypotensive. She received IV fluids. She received Toradol for generalized myalgias. She had no physical exam findings to suggest sepsis. There is no abnormal findings on respiratory examination to suggest a pneumonia. Urinalysis showed no evidence of urinary tract infection. Observation Note: Time: 4 hours Family Hx: No Hypertension Evaluation: Multiple exams showed improving symptoms and no evidence of diabetic ketoacidosis. The patient also had prerenal acidemia. Blood glucose and dehydration treated with IV fluids with a total of 2 L normal saline. She also was given 5 units of subcutaneous insulin. The patient did have a mild urinary tract infection. She will be sent home with [facility].. The patient was discharged home in fair condition. They were instructed to return to the emergency department at any time if there was any worsening of their condition. The patient stated they would follow up with their PCP in the next 24-48 hours to initiate a suitable medication regimen under the care of their PCP as well as to allow their PCP to monitor any drug reactions. The patient was discharged home with prescriptions after they gave informed consent to the new medication. They were also fully informed by myself on the adverse effects and adverse drug interactions in order to provide adequate safeguards to prevent possible adverse reactions to medications. Departure Diagnosis: Primary Impression: Dizziness Additional Impressions: Hyperglycemia without ketosis Dehydration Condition: Fair OMID MINOR MD Jul 09, 2018 21:25
[2018-07-09] MEDS ORDERED: morphine 4 MG/ML VIAL IV STA (21:35)
[2018-07-09] MEDS ORDERED: INSULIN LISPRO 100 UNIT/ML VIAL SC STA (21:36)
[2018-07-09] MEDS ORDERED: CEPH-443 PO (21:40)
[2018-07-09 23:39] VITALS: BP 101/79; PULSE 77; RESP 16
== END 2018-07-09 23:39 | disposition home or self-care (01) ==
LOC: E/R 16:35
DX: E10.65 Type 1 diabetes mellitus with hyperglycemia (principal); E86.0 Dehydration; Z79.4 Long term (current) use of insulin
CPT/HCPCS: 80053; 81001; 82150; 82962; 83690; 84484; 85025; 85610; 85730; 87086; 93005; 96372; 96374; 96375; 96376; J1815; J1885; J2270; J2405; J7030; Z7502; 81003

== ENCOUNTER 2018-08-02 11:10 | Emergency (ER) | payer MEDICAID ==
[~2018-08-02] VITALS: Ht 157.5 cm; Wt 42.8 kg
[~2018-08-02 11:10] MED LIST changes: -BACL10TA PO; -HYDR-4011 PO; -IBUP-1561 PO; -METH750T93 PO; -NAPR-985 PO; -OMEP40CA6 PO; -SUMA5SPR NS
[2018-08-02 11:16] VITALS: Ht 157.5 cm; Wt 42.8 kg
--- NOTE | 2018-08-02 15:28 | ERD ---
ER Documentation Chief Complaint Chief Complaint bodyaches x 2 weeks HPI The patient is a 43-year-old female, presenting to the ER because of body pain, lightheadedness, nausea for 2 weeks, denies fever, chills, neck pain, chest pain , dyspnea, abdominal pain, complains of dysuria for the last 5 days, intermittent diarrhea for the last 2 weeks, denies hematemesis/hematochezia. She does not smoke nor drink Past medical history: Diabetes mellitus, history of ovarian cyst, chronic kidney disease Past surgical history: Appendectomy ROS All systems reviewed and are negative except as per history of present illness. Medications Home Meds Active Scripts Cephalexin* (Keflex*) 500 Mg Capsule, 500 MG PO TID for 7 Days, CAP Prov:CHLOE QUINONEZ MD 08/02/18 Cephalexin* (Keflex*) 500 Mg Capsule, 500 MG PO QID for 5 Days, CAP Prov:CHLOE QUINONEZ MD 08/02/18 Cephalexin* (Keflex*) 500 Mg Capsule, 500 MG PO QID for 5 Days, CAP Prov:OMID MINOR MD 07/09/18 Ondansetron Hcl* (Zofran*) 4 Mg Tablet, 4 MG PO Q8H PRN for NAUSEA AND/OR VOMITING, #30 TAB Prov:CHI HARRISON 04/29/18 Ondansetron (Ondansetron Odt) 4 Mg Tab.rapdis, 4 MG PO Q6H PRN for NAUSEA AND/OR VOMITING, #10 TAB Prov:EULALIA LOVE PA-C 03/18/18 Reported Medications Ibuprofen* (Ibuprofen*) 600 Mg Tablet, 600 MG PO Q6 PRN for PAIN LEVEL 4-7, TAB 01/11/18 Insulin Glargine* (Lantus*) 100 Unit/Ml Soln, 15 UNIT SC BID, #1 VIAL 01/11/18 Allergies Allergies: Coded Allergies: No Known Allergy (Unverified , 07/09/18) PMhx/Soc History of Surgery: Yes (appendectomy) Anesthesia Reaction: No Hx Neurological Disorder: No Hx Respiratory Disorders: No Hx Cardiac Disorders: No Hx Psychiatric Problems: No Hx Miscellaneous Medical Probl: Yes (DM type I, OVARIAN CYST) Hx Alcohol Use: No Hx Substance Use: No Hx Tobacco Use: No Physical Exam Vitals Vital Signs Date Temp Pulse Resp B/P (MAP) Pulse Ox O2 O2 Flow FiO2 Time Delivery Rate 08/02/18 98 18 130/92 99 Room Air 15:33 (105) 08/02/18 97.1 100 18 97/61 (73) 99 11:16 Physical Exam Const: No acute distress. Head: Atraumatic. Eyes: Normal Conjunctiva. ENT: Normal External Ears, Nose and Mouth. Neck: Full range of motion. No meningismus. Resp: Clear to auscultation bilaterally. Cardio: Regular rate and rhythm. Abd: Soft, non distended, normal bowel sounds, suprapubic discomfort, no right lower quadrant/right upper quadrant/epigastric/CVA tenderness. Skin: No petechiae or rashes. Back: No midline or flank tenderness. Ext: No cyanosis, or edema. Neur: Awake and alert. No focal deficit Psych: Normal Mood and Affect. Result Diagram: 08/02/18 1555 08/02/18 1555 Results 24 hrs Laboratory Tests Test 08/02/18 15:42 08/02/18 15:55 Bedside Urine pH (LAB) 5.5 Bedside Urine Protein (LAB) 2+ Bedside Urine Glucose (UA) Negative Bedside Urine Ketones (LAB) 1+ Bedside Urine Blood 3+ Bedside Urine Nitrite (LAB) Negative Bedside Urine Leukocyte Esterase (L 1+ POC Beta HCG, Qualitative NEGATIVE White Blood Count 10.2 10^3/ul Red Blood Count 4.39 10^6/ul Hemoglobin 11.6 g/dl Hematocrit 36.2 % Mean Corpuscular Volume 82.5 fl Mean Corpuscular Hemoglobin 26.4 pg Mean Corpuscular Hemoglobin Concent 32.0 g/dl Red Cell Distribution Width 15.9 % Platelet Count 280 10^3/UL Mean Platelet Volume 10.8 fl Immature Granulocytes % 0.400 % Neutrophils % 81.9 % Lymphocytes % 13.2 % Monocytes % 4.0 % Eosinophils % 0.2 % Basophils % 0.3 % Nucleated Red Blood Cells % 0.0 /100WBC Immature Granulocytes # 0.040 10^3/ul Neutrophils # 8.4 10^3/ul Lymphocytes # 1.3 10^3/ul Monocytes # 0.4 10^3/ul Eosinophils # 0.0 10^3/ul Basophils # 0.0 10^3/ul Nucleated Red Blood Cells # 0.0 10^3/ul Sodium Level 140 mmol/L Potassium Level 4.4 mmol/L Chloride Level 98 mmol/L Carbon Dioxide Level 26 mmol/L Anion Gap 16 Blood Urea Nitrogen 30 mg/dl Creatinine 1.38 mg/dl Est Glomerular Filtrat Rate mL/min 42 mL/min Glucose Level 163 mg/dl Calcium Level 9.9 mg/dl Total Bilirubin 0.7 mg/dl Direct Bilirubin 0.00 mg/dl Indirect Bilirubin 0.7 mg/dl Aspartate Amino Transf (AST/SGOT) 33 IU/L Alanine Aminotransferase (ALT/SGPT) 13 IU/L Alkaline Phosphatase 95 IU/L Total Protein 8.7 g/dl Albumin 4.7 g/dl Globulin 4.00 g/dl Albumin/Globulin Ratio 1.17 Lipase 196 U/L Current Medications Medications Dose Sig/Nathan Start Time Status Last (Trade) Ordered Route PRN Stop Time Admin Dose Reason Admin Sodium 1,000 ml @ Q1H STAT 08/02/18 DC 08/02/18 Chloride 1,000 mls/hr IV 15:40 16:01 08/02/18 16:39 Ondansetron 4 mg ONCE STAT 08/02/18 DC 08/02/18 HCl (Zofran IV 15:40 16:01 Inj) 08/02/18 15:42 Ceftriaxone 50 ml @ ONCE ONCE 08/02/18 DC 08/02/18 Sodium 100 mls/hr IVPB 17:00 17:03 08/02/18 17:29 Morphine 2 mg ONCE STAT 08/02/18 DC 08/02/18 Sulfate IV 16:50 17:03 (morphine) 08/02/18 16:51 Ondansetron 4 mg ONCE STAT 08/02/18 DC 08/02/18 HCl (Zofran IV 17:00 17:03 Inj) 08/02/18 17:01 Procedures/MDM MEDICAL MAKING DECISION: The patient is a 43-year-old female, presenting with acute cystitis, acute dehydration. She was treated with 1 L normal saline for acute dehydration, Zofran IV x2for nausea, morphine 2 mg IV for pain with good response, is stable for outpatient follow-up The differential diagnoses considered include but are not limited to cholelith iasis, cholecystitis, choledocholithiasis, cholangitis, pancreatitis, hepatitis, gastritis, peptic ulcer disease, gastric ulcer, appendicitis, cystitis, diverticulitis, partial small bowel obstruction. Departure Diagnosis: Primary Impression: UTI (urinary tract infection) Additional Impressions: Dehydration Anemia Condition: Good Comments She was discharged with Keflex and Zofran I discussed the findings with the patient. I advised the patient to follow-up with the primary physician in about 1-2 days, sooner if needed and return if any concern. Disclaimer: Inadvertent spelling and grammatical errors are likely due to EHR/dictation software use and do not reflect on the overall quality of patient care. Also, please note that the electronic time recorded on this note does not necessarily reflect the actual time of the patient encounter. CHLOE QUINONEZ MD Aug 02, 2018 15:28
[2018-08-02] MEDS ORDERED: ONDANSETRON 4 MG INJ IV STA ×2 (15:40→17:00)
[2018-08-02] MEDS ORDERED: SOD CHLORIDE 0.9% 1,000 ML IV STA (15:40)
[2018-08-02] MEDS ORDERED: morphine 2 MG INJ IV STA (16:50)
[2018-08-02] MEDS ORDERED: CEPH-443 PO ×2 (16:52→16:54)
[2018-08-02] MEDS ORDERED: CEFTRIAXONE 1 GM/50 ML (PMX) 50 ML IVPB ONE (17:00)
[2018-08-02 18:06] VITALS: BP 121/87; PULSE 98; RESP 18
[2018-08-02] MEDS ORDERED: SULF1TAB31 PO (18:06)
== END 2018-08-02 18:18 | disposition home or self-care (01) ==
LOC: E/R 11:10
DX: N39.0 Urinary tract infection, site not specified (principal); E86.0 Dehydration; D64.9 Anemia, unspecified; E10.9 Type 1 diabetes mellitus without complications; Z79.4 Long term (current) use of insulin
CPT/HCPCS: 80053; 81003; 81025; 83690; 85025; J0696; J2270; J2405; J7030; 36415; 96374; 96375; 96376

== ENCOUNTER 2018-08-27 15:54 | Emergency (ER) | payer MEDICAID ==
[~2018-08-27] VITALS: Ht 157.5 cm; Wt 42.3 kg
[~2018-08-27 15:54] MED LIST changes: +SULF1TAB31 PO
[2018-08-27 16:01] VITALS: Ht 157.5 cm; Wt 42.3 kg
[2018-08-27] MEDS ORDERED: morphine 4 MG/ML VIAL IV STA (17:57)
[2018-08-27] MEDS ORDERED: FAMOTIDINE 20 MG INJ IV STA (17:57)
[2018-08-27] MEDS ORDERED: SOD CHLORIDE 0.9% 1,000 ML IV STA (17:57)
[2018-08-27] MEDS ORDERED: ONDANSETRON 4 MG INJ IV STA ×2 (17:57→18:37)
[2018-08-27] MEDS ORDERED: MECLIZINE 12.5 MG TAB PO ONE (18:00)
[2018-08-27] MEDS ORDERED: HYDROmorphONE 1 MG/ML SYG IV STA (18:37)
--- NOTE | 2018-08-27 20:26 | ERD ---
ER Documentation Chief Complaint Chief Complaint Pt with diizines , body pain and nausea X 3 days. HPI This is a 43-year-old female with a known history of left sided ovarian cancer diagnosed roughly 2 months ago not undergoing chemotherapy at this time. The patient indicates that for the past 3 days she is been feeling very lightheaded and dizzy. She feels as though the room is spinning around her and is worse when she lies supine. She has no fevers or shaking or chills. She is felt nauseous. She does complain of lower abdominal pain but she states this is been present for several months since she was diagnosed with her ovarian carcinoma. She is a history of xhp-lozdwne-rdqlianpo diabetes and denies any polyuria poly dipsia. No shortness of breath at rest or exertion. No swelling of her lower extremity's. No hemoptysis no hematemesis no melanotic stools. ROS All systems reviewed and are negative except as per history of present illness. Medications Home Meds Active Scripts Sulfamethoxazole/Trimethoprim* (Bactrim Ds* Tablet) 1 Each Tablet, 1 TAB PO BID, #14 TAB Prov:CHLOE QUINONEZ MD 08/02/18 Cephalexin* (Keflex*) 500 Mg Capsule, 500 MG PO TID for 7 Days, CAP Prov:CHLOE QUINONEZ MD 08/02/18 Cephalexin* (Keflex*) 500 Mg Capsule, 500 MG PO QID for 5 Days, CAP Prov:CHLOE UQINONEZ MD 08/02/18 Cephalexin* (Keflex*) 500 Mg Capsule, 500 MG PO QID for 5 Days, CAP Prov:OMID MINOR MD 07/09/18 Ondansetron Hcl* (Zofran*) 4 Mg Tablet, 4 MG PO Q8H PRN for NAUSEA AND/OR VOMITING, #30 TAB Prov:CHI HARRISON 04/29/18 Ondansetron (Ondansetron Odt) 4 Mg Tab.rapdis, 4 MG PO Q6H PRN for NAUSEA AND/OR VOMITING, #10 TAB Prov:EULALIA LOVE PA-C 03/18/18 Reported Medications Ibuprofen* (Ibuprofen*) 600 Mg Tablet, 600 MG PO Q6 PRN for PAIN LEVEL 4-7, TAB 01/11/18 Insulin Glargine* (Lantus*) 100 Unit/Ml Soln, 15 UNIT SC BID, #1 VIAL 01/11/18 Allergies Allergies: Coded Allergies: No Known Allergy (Unverified , 07/09/18) PMhx/Soc History of Surgery: Yes (appendectomy) Anesthesia Reaction: No Hx Neurological Disorder: No Hx Respiratory Disorders: No Hx Cardiac Disorders: No Hx Psychiatric Problems: No Hx Miscellaneous Medical Probl: Yes (DM type I, OVARIAN CYST) Hx Alcohol Use: No Hx Substance Use: No Hx Tobacco Use: No Smoking Status: Never smoker Physical Exam Vitals Vital Signs Date Temp Pulse Resp B/P (MAP) Pulse Ox O2 O2 Flow FiO2 Time Delivery Rate 08/27/18 98.9 112 16 120/84 100 Room Air 17:04 (96) 08/27/18 98.0 102 18 101/62 97 16:01 (75) Physical Exam Constitutional:Well-developed. Well-nourished. HEENT:Normocephalic. Atraumatic.Pupils were equal round reactive to light. Moist mucous membranes.No tonsillar exudates. Neck: No nuchal rigidity. No lymphadenopathy. No posterior cervical spine tenderness or step-offs. Respiratory: Not using accessory muscles of respiration.Lungs were clear to auscultation bilaterally. No rhonchi. No rales. No wheezing. Cardiovascular: Regular rate regular rhythm.No murmurs. No rubs were appreciated.S1, S2 normal. Distal pulses are palpable 2+ bilaterally. GI: Abdomen was soft. Mild tenderness in the left lower quadrant. Non Distended. No pulsatile abdominal masses or bruits. No rebound. No guarding. Bowel sounds were present and normal. Muscle skeletal: Full range of motion of both the upper and lower extremities bilaterally.Normal muscle tone.No assymetrical calf tenderness or swelling. Skin: No petechia, no purpura. No lesions on the palms or the soles of the feet. No maculopapular rash. NEURO: Patient was alert, awake, orientated x3.No facial droop. Gait observed and normal with no ataxia.Speech had regular rate and rhythm. No focal neurological deficits. Peripheral fatigable nystagmus Result Diagram: 08/27/18 5789 08/27/18 1658 Results 24 hrs Laboratory Tests Test 08/27/18 16:53 08/27/18 16:56 08/27/18 17:30 White Blood Count 9.3 10^3/ul Red Blood Count 4.36 10^6/ul Hemoglobin 11.7 g/dl Hematocrit 36.4 % Mean Corpuscular Volume 83.5 fl Mean Corpuscular Hemoglobin 26.8 pg Mean Corpuscular 32.1 g/dl Hemoglobin Concent Red Cell Distribution Width 14.7 % Platelet Count 237 10^3/UL Mean Platelet Volume 11.8 fl Immature Granulocytes % 0.300 % Neutrophils % 80.8 % Lymphocytes % 14.7 % Monocytes % 3.7 % Eosinophils % 0.2 % Basophils % 0.3 % Nucleated Red Blood Cells % 0.0 /100WBC Immature Granulocytes # 0.030 10^3/ul Neutrophils # 7.5 10^3/ul Lymphocytes # 1.4 10^3/ul Monocytes # 0.3 10^3/ul Eosinophils # 0.0 10^3/ul Basophils # 0.0 10^3/ul Nucleated Red Blood Cells # 0.0 10^3/ul Prothrombin Time 13.0 Sec Prothrombin Time Ratio 1.0 INR International Normalized Ratio 0.97 Activated Partial Thromboplast 28.4 Sec Time Sodium Level 137 mmol/L Potassium Level 4.7 mmol/L Chloride Level 95 mmol/L Carbon Dioxide Level 27 mmol/L Anion Gap 15 Blood Urea Nitrogen 26 mg/dl Creatinine 1.06 mg/dl Est Glomerular Filtrat Rate mL/min 57 mL/min Glucose Level 159 mg/dl Calcium Level 10.1 mg/dl Total Bilirubin 1.2 mg/dl Direct Bilirubin 0.00 mg/dl Indirect Bilirubin 1.2 mg/dl Aspartate Amino Transf (AST/SGOT) 25 IU/L Alanine 17 IU/L Aminotransferase (ALT/SGPT) Alkaline Phosphatase 73 IU/L Troponin I < 0.012 ng/ml Total Protein 8.1 g/dl Albumin 4.5 g/dl Globulin 3.60 g/dl Albumin/Globulin Ratio 1.25 POC Beta HCG, Qualitative NEGATIVE Bedside Glucose 156 mg/dL Current Medications Medications Dose Sig/Nathan Start Time Status Last (Trade) Ordered Route PRN Stop Time Admin Dose Reason Admin Sodium 1,000 ml @ Q1H STAT 08/27/18 DC 08/27/18 Chloride 1,000 mls/hr IV 17:57 18:03 08/27/18 18:56 Morphine 4 mg ONCE STAT 08/27/18 DC 08/27/18 Sulfate IV 17:57 18:04 (morphine) 08/27/18 18:00 Ondansetron 4 mg ONCE STAT 08/27/18 DC 08/27/18 HCl (Zofran IV 17:57 18:04 Inj) 08/27/18 18:00 Famotidine 20 mg ONCE STAT 08/27/18 DC 08/27/18 (Pepcid Iv) IV 17:57 18:03 08/27/18 18:00 Meclizine 25 mg ONCE ONCE 08/27/18 DC 08/27/18 HCl PO 18:00 18:03 (Antivert) 08/27/18 18:01 1 mg ONCE STAT 08/27/18 DC 08/27/18 Hydromorphone IV 18:37 18:45 HCl 08/27/18 18:38 (Dilaudid) Ondansetron 4 mg ONCE STAT 08/27/18 DC 08/27/18 HCl (Zofran IV 18:37 18:45 Inj) 08/27/18 18:38 Procedures/MDM This patient was seen and evaluated by myself. The patient presented to the emergency department complaining of dizziness. My differential diagnosis included but was not limited to hypovolemia, myocardial infarction, pulmonary embolism, hypoglycemia, hypoxia, anemia, vasovagal episode, hypothyroidism, anxiety, peripheral or central vertigo. The patient was placed on a cafeteria monitor, continuous pulse oximetry and IV access established by nursing staff. The patient was given intravenous morphine and Zofran for analgesia control. I felt the pain was more of a result from her ovarian carcinoma and there is no peritoneal signs and no radiographic imaging the patient's abdomen was obtained. However the patient was experiencing dizziness with a mild bandlike headache. CT scan of the patient's head showed no intracerebral hemorrhage mass-effect or midline shift. 12 Lead EKG tracing ordered and reviewed by myself showed: Normal sinus rhythm of 100 bpm and no arrhythmia. MT interval normal. QRS duration normal. No ST segment elevation No ST segment depression. No changes consistent with acute ischemia. The patient did not have prerenal azotemia thought to be secondary to clinical dehydration. This was treated with IV fluids. The patient required a further dose of analgesic medication. She was also given Zofran and Antivert. She stated her dizziness had improved. I felt the symptoms were result of periph eral vertigo and that she could be safely discharged home. She will follow-up with her primary care physician. The patient was discharged home in fair condition. They were instructed to return to the emergency department at any time if there was any worsening of their condition. The patient stated they would follow up with their PCP in the next 24-48 hours to initiate a suitable medication regimen under the care of their PCP as well as to allow their PCP to monitor any drug reactions. The patient was discharged home with prescriptions after they gave informed consent to the new medication. They were also fully informed by myself on the adverse effects and adverse drug interactions in order to provide adequate safeguards to prevent possible adverse reactions to medications. Departure Diagnosis: Primary Impression: Dizziness Additional Impressions: Peripheral vertigo Laterality: unspecified laterality Qualified Codes: H81.399 - Other peripheral vertigo, unspecified ear Ovarian carcinoma Laterality: left Qualified Codes: C56.2 - Malignant neoplasm of left ovary OMID MINOR MD Aug 27, 2018 20:26
[2018-08-27] MEDS ORDERED: ONDA4TAB14 PO (20:29)
[2018-08-27] MEDS ORDERED: MECL-77 PO (20:29)
[2018-08-27] MEDS ORDERED: HYDR-4011 PO (20:29)
[2018-08-27 20:35] VITALS: BP 125/85; PULSE 99; RESP 20
[2018-08-27] MEDS ORDERED: METOCLOPRAMIDE 10 MG INJ IV ONE (21:00)
== END 2018-08-27 20:51 | disposition home or self-care (01) ==
LOC: E/R 15:54
DX: H81.399 Other peripheral vertigo, unspecified ear (principal); C56.2 Malignant neoplasm of left ovary; E10.9 Type 1 diabetes mellitus without complications; Z79.4 Long term (current) use of insulin
CPT/HCPCS: 70450; 80053; 81025; 82962; 84484; 85025; 85610; 85730; 93005; 96374; 96375; 96376; J1170; J2270; J2405; J2765; J7030; Z7502; Z7610

== ENCOUNTER 2018-09-20 19:46 | Emergency (ER) | payer MEDICAID, OTHER ==
[~2018-09-20] VITALS: Ht 157.5 cm; Wt 42.5 kg
[~2018-09-20 19:46] MED LIST changes: +HYDR-3980 PO; +HYDR-4011 PO; +MECL-77 PO; +NALO4SPR NS
[2018-09-20 20:10] VITALS: Ht 157.5 cm; Wt 42.5 kg
[2018-09-20] MEDS ORDERED: SOD CHLORIDE 0.9% 1,000 ML IV STA (21:19)
[2018-09-20] MEDS ORDERED: ONDANSETRON 4 MG INJ IV STA ×2 (21:19→23:38)
[2018-09-20] MEDS ORDERED: morphine 4 MG/ML VIAL IV STA ×2 (21:19→23:38)
[2018-09-20 23:46] VITALS: BP 131/95; PULSE 97; RESP 20
--- NOTE | 2018-09-20 23:51 | ERD ---
ER Documentation Chief Complaint Chief Complaint C/O SEVERE BODY PAIN, DIZZINESS, NAUSEA, DX W/ OVARIAN CA 2MONTHS AGO HPI 43-year-old female with reported history of recent diagnosis of pelvic malignancy and possibly ovarian, currently being followed up at outpatient hospital and [facility]. The patient states an exacerbation of her pain that she has been experience and over the last several months. The pain is starting on her abdomen and goes to the entirety of her body. It is moderate to severe. No associated fevers or chills. No nausea or vomiting. The patient is having regular bowel movements. She is not undergoing chemo or radiation. She does not have pain medication at home. ROS All systems reviewed and are negative except as per history of present illness. Medications Home Meds Active Scripts Naloxone HCl nasal spray (Narcan 4 mg/0.1 mL nasal) 4 Mg Malin, 4 MG NS .Q2-3MIN for OPIOID OVERDOSE, #2 SPRAY 0 Refills Malin 0.1 mL into one nostril. Repeat with second device into other nostril after 2-3 minutes if no or minimal response Prov:JARVIS CELIS MD 09/20/18 Ondansetron (Ondansetron Odt) 4 Mg Tab.rapdis, 4 MG PO Q6H PRN for NAUSEA AND/OR VOMITING, #20 TAB Prov:JARVIS CELIS MD 09/20/18 Hydrocodone/Acetaminophen (Tobyhanna 10-325 Tablet) 1 Each Tablet, 1 TAB PO Q6H PRN for PAIN, #12 TAB Prov:JARVIS CELIS MD 09/20/18 Meclizine Hcl* (Meclizine Hcl*) 25 Mg Tablet, 25 MG PO TID, #30 TAB Prov:OMID MINOR MD 08/27/18 Ondansetron (Ondansetron Odt) 4 Mg Tab.rapdis, 4 MG PO Q6H PRN for NAUSEA AND/OR VOMITING, #10 TAB Prov:OMID MINRO MD 08/27/18 Hydrocodone/Acetaminophen ([place]oby[place]anna 5-325 Tablet) 1 Each Tablet, 1 TAB PO Q6H PRN for PAIN, #20 TAB Prov:OMID MINOR MD 08/27/18 Sulfamethoxazole/Trimethoprim* (Bactrim Ds* Tablet) 1 Each Tablet, 1 TAB PO BID, #14 TAB Prov:CHLOE QUINONEZ MD 08/02/18 Cephalexin* (Keflex*) 500 Mg Capsule, 500 MG PO TID for 7 Days, CAP Prov:CHLOE QUINONEZ MD 08/02/18 Cephalexin* (Keflex*) 500 Mg Capsule, 500 MG PO QID for 5 Days, CAP Prov:CHLOE QUINONEZ MD 08/02/18 Cephalexin* (Keflex*) 500 Mg Capsule, 500 MG PO QID for 5 Days, CAP Prov:OMID MINOR MD 07/09/18 Ondansetron Hcl* (Zofran*) 4 Mg Tablet, 4 MG PO Q8H PRN for NAUSEA AND/OR VOMITING, #30 TAB Prov:CHI HARRISON 04/29/18 Ondansetron (Ondansetron Odt) 4 Mg Tab.rapdis, 4 MG PO Q6H PRN for NAUSEA AND/OR VOMITING, #10 TAB Prov:EULALIA LOVE PA-C 03/18/18 Reported Medications Ibuprofen* (Ibuprofen*) 600 Mg Tablet, 600 MG PO Q6 PRN for PAIN LEVEL 4-7, TAB 01/11/18 Insulin Glargine* (Lantus*) 100 Unit/Ml Soln, 15 UNIT SC BID, #1 VIAL 01/11/18 Allergies Allergies: Coded Allergies: No Known Allergy (Unverified , 07/09/18) PMhx/Soc History of Surgery: Yes (appendectomy) Anesthesia Reaction: No Hx Neurological Disorder: No Hx Respiratory Disorders: No Hx Cardiac Disorders: No Hx Psychiatric Problems: No Hx Miscellaneous Medical Probl: Yes (DM type I, OVARIAN CYST) Hx Alcohol Use: No Hx Substance Use: No Hx Tobacco Use: No Smoking Status: Never smoker FmHx Family History: No diabetes Physical Exam Vitals Vital Signs Date Temp Pulse Resp B/P (MAP) Pulse Ox O2 O2 Flow FiO2 Time Delivery Rate 09/20/18 97 20 131/95 97 Room Air 23:46 (107) 09/20/18 103 17 137/94 97 Room Air 21:56 (108) 09/20/18 97.5 110 17 129/87 98 20:10 (101) Physical Exam General: Thin, cachectic, uncomfortable Head: Normocephalic, atraumatic. Eyes: Pupils equally reactive, EOM intact ENT: Moist mucous membranes Neck: Supple, no lymphadenopathy Respiratory: Lungs clear bilaterally, no distress Cardiovascular: RRR, no murmurs, rubs, or gallops Abdominal: Soft, non-tender, non-distended, no peritoneal signs : Deferred MSK: No edema, no unilateral swelling, 5/5 strength Neurologic: Alert and oriented, moving all extremities, normal speech, no focal weakness, no cerebellar signs Skin: No rash Psych: Normal mood Result Diagram: 09/20/18211909/20/182119 Results 24 hrs Laboratory Tests Test 09/20/18 20:13 09/20/18 21:20 09/20/18 21:37 Bedside Glucose 170 mg/dL White Blood Count 9.4 10^3/ul Red Blood Count 4.27 10^6/ul Hemoglobin 12.0 g/dl Hematocrit 36.8 % Mean Corpuscular Volume 86.2 fl Mean Corpuscular Hemoglobin 28.1 pg Mean Corpuscular 32.6 g/dl Hemoglobin Concent Red Cell Distribution Width 14.1 % Platelet Count 245 10^3/UL Mean Platelet Volume 10.6 fl Immature Granulocytes % 0.300 % Neutrophils % 74.2 % Lymphocytes % 18.1 % Monocytes % 6.5 % Eosinophils % 0.6 % Basophils % 0.3 % Nucleated Red Blood Cells % 0.0 /100WBC Immature Granulocytes # 0.030 10^3/ul Neutrophils # 7.0 10^3/ul Lymphocytes # 1.7 10^3/ul Monocytes # 0.6 10^3/ul Eosinophils # 0.1 10^3/ul Basophils # 0.0 10^3/ul Nucleated Red Blood Cells # 0.0 10^3/ul Sodium Level 137 mmol/L Potassium Level 3.8 mmol/L Chloride Level 93 mmol/L Carbon Dioxide Level 32 mmol/L Anion Gap 12 Blood Urea Nitrogen 22 mg/dl Creatinine 1.07 mg/dl Est Glomerular Filtrat Rate mL/min 56 mL/min Glucose Level 184 mg/dl Calcium Level 9.5 mg/dl Total Bilirubin 1.2 mg/dl Direct Bilirubin 0.00 mg/dl Indirect Bilirubin 1.2 mg/dl Aspartate Amino Transf (AST/SGOT) 26 IU/L Alanine 23 IU/L Aminotransferase (ALT/SGPT) Alkaline Phosphatase 76 IU/L Total Protein 8.8 g/dl Albumin 4.7 g/dl Globulin 4.10 g/dl Albumin/Globulin Ratio 1.14 Lipase 153 U/L POC Beta HCG, Qualitative NEGATIVE Current Medications Medications Dose Sig/Nathan Start Time Status Last (Trade) Ordered Route PRN Stop Time Admin Dose Reason Admin Sodium 1,000 ml @ Q1H STAT 09/20/18 DC 09/20/18 Chloride 1,000 mls/hr IV 21:19 21:36 09/20/18 22:18 Morphine 6 mg ONCE STAT 09/20/18 DC 09/20/18 Sulfate IV 21:19 21:35 (morphine) 09/20/18 21:21 Ondansetron 4 mg ONCE STAT 09/20/18 DC 09/20/18 HCl (Zofran IV 21:19 21:35 Inj) 09/20/18 21:21 Morphine 4 mg ONCE STAT 09/20/18 DC 09/20/18 Sulfate IV 23:38 23:44 (morphine) 09/20/18 23:39 Ondansetron 4 mg ONCE STAT 09/20/18 DC 09/20/18 HCl (Zofran IV 23:38 23:43 Inj) 09/20/18 23:39 Procedures/MDM EKG, MONITORS, & DIAGNOSTIC IMAGING: CT abdomen and pelvis: IMPRESSION: CT of the abdomen pelvis demonstrate contraction of the colon with apparent wall thickening however would clinically correlate for infectious or inflammatory colitis mostly effecting the descending colon to rectum. Multiphase septated cystic lesion is seen anterior superior to the uterus, li marcelina of ovarian origin. There is been interval resolution of 1 of the cystic lesions. No free fluid is seen. Would recommend MRI with contrast for better evaluation. Multiple hyperdense lesions within bilateral kidneys which may represent hemorrhagic cysts. Contrast enhanced CT or ultrasound can be obtained to better evaluate. RPTAT:[facility] LAB INTERPRETATION: I reviewed the laboratory testing and it shows no evidence of acute process MEDICAL DECISION MAKING: Patient's presentation is consistent with acute exacerbation of her chronic pain related to likely underlying malignancy. Low concern for bowel obstruction though the patient has not had recent imaging. ER COURSE: * Laboratory testing and diagnostic imaging consistent with baseline malignancy. Low concern for ovarian torsion. Patient's pain is well controlled. The patient can be safely discharged. She has appropriate outpatient follow-up and needs to continue with the follow-up for further work-up of her malignancy CONSULTATION: None DISPOSITION PLAN: The patient does not have an identifiable emergent medical condition that warrants inpatient hospitalization at this time. The patient is deemed safe for discharge with outpatient follow-up. We discussed follow up with the patient's primary care doctor within 24 to 48 hours as needed. We also discussed return to the emergency room for worsening symptoms or worsening condition. Outpatient referral: ACUTE CARE CERTIFIED NURSING ASSISTANT Discharge Medications: NARCOTIC MEDICATION: The patient has been prescribed a narcotic medication during this encounter. The patient has been warned about the use of narcotics. The patient should not drive or operate heavy machinery while taking this medication. The patient was also warned about the addictive properties of narcotic medications. Narcan prescription WAS provided given one of the following criteria were met: 1. More than 5 tablets of Tobyhanna 10 mg or 10 tablets of Tobyhanna 5 mg were prescribed. 2. Concomitant opiate and benzodiazepine prescriptions were provided. 3. There is evidence of prior history of opiate abuse or overdose. Departure Diagnosis: Primary Impression: Total body pain Condition: Stable Patient Instructions: Pain Management Additional Instructions: Call your primary care doctor TOMORROW for an appointment during the next 1 WEEK.Tell the receptionist secretary that you were referred from this facility.See the doctor sooner or return here if your condition worsens before your appointment time. JARVIS CELIS MD Sep 20, 2018 23:51
== END 2018-09-20 23:54 | disposition home or self-care (01) ==
LOC: E/R 19:46
DX: R52 Pain, unspecified (principal); E10.9 Type 1 diabetes mellitus without complications; Z85.43 Personal history of malignant neoplasm of ovary; Z79.4 Long term (current) use of insulin
CPT/HCPCS: 36415; 74176; 80053; 81025; 82962; 83690; 85025; 96374; 96375; 96376; J2270; J2405; J7030; Z7502

== ENCOUNTER 2018-10-11 09:11 | Emergency (ER) | payer OTHER ==
[~2018-10-11] VITALS: Ht 157.5 cm; Wt 42.2 kg
[2018-10-11 09:14] VITALS: BP 110/70; PULSE 94; RESP 20; Ht 157.5 cm; Wt 42.2 kg
[2018-10-11] MEDS ORDERED: LIDOCAINE/MYLANTA 40 ML BTL PO ONE (10:00)
== END 2018-10-11 10:58 | disposition home or self-care (01) ==
LOC: FTE 09:11
DX: R10.9 Unspecified abdominal pain (principal); E10.9 Type 1 diabetes mellitus without complications; G89.29 Other chronic pain; R11.0 Nausea; Z79.4 Long term (current) use of insulin; Z85.43 Personal history of malignant neoplasm of ovary
CPT/HCPCS: 81003; 81025; Z7502; Z7610; 99283